=== PATIENT | male | born 1940 | race Caucasian/White ===

== ENCOUNTER 2017-02-13 22:14 | Inpatient (IN) | payer MEDICARE, BC ==
[2017-02-13] MEDS ORDERED: ACETAMINOPHEN TAB 500 MG TAB PO STA (22:49)
[2017-02-13 23:02] LABS: Basophils % (A) 0 %; CH 27.7; CHCM 33.2; Eosinophils % (A) 0 %; HDW 2.91; HGB 12.7 gm/dL (13.0-17.5); Luc # (Auto) 0.35; Luc % (Auto) 3; Lymphocytes # (A) 0.7 k/uL (1.0-4.8); Lymphocytes % (A) 7 %; MCH 27.2 pg (25.0-35.0); MCHC 32.6 g/dL (31.0-37.0); MCV 83.6 fL (80.0-100.0); Mean Platelet Volume 8.7; Monocytes # (A) 0.5 k/uL (0-1.0); Monocytes % (A) 5 %; Neutrophils # (A) 8.9 k/uL (1.3-7.7); Neutrophils % (A) 85 %; RBC 4.67 m/uL (4.30-5.90); RDW 15.2 % (11.5-15.5); WBC 10.5 k/uL (3.8-10.6); WBC (Perox) 10.66
[2017-02-13] MEDS: SODIUM CHLORIDE 0.9% 500 ML IV SCH ×2 (23:04→23:45)
[2017-02-13 23:10] LABS: Appearance,Urine Clear (Clear); Bacteria,Urine Rare /hpf; Bilirubin,Urine Negative (Negative); Glucose,Urine (UA) Trace (Negative); Ketones,Urine 1+ (Negative); Leukocyte Esterase,Urine Negative (Negative); Mucus,Urine Rare /hpf; Nitrite,Urine Negative (Negative); PH, Urine 5.5 (5.0-8.0); Particle Count 6025; Protein,Urine 3+ (Negative); RBC,Urine 1 /hpf (0-5); Squamous Epithelial Cell,Urine <1 /hpf (0-4); UA Billing (MACRO vs. MICRO) MICRO; Urobilinogen,Urine <2.0 mg/dL (<2.0); WBC,Urine 1 /hpf (0-5)
[2017-02-13] MEDS ORDERED: ACETAMINOPHEN IV (For NPO) 1,000 MG in EMPTY BAG 1 BAG IVPB ONE (23:10)
[2017-02-13 23:11] LABS: ALT 19 U/L (21-72); AST 20 U/L (17-59); Alkaline Phosphatase 104 U/L (38-126); Anion Gap 19 mmol/L; Blood Urea Nitrogen 22 mg/dL (9-20); Carbon Dioxide 18 mmol/L (22-30); Chloride 99 mmol/L (98-107); Glucose 283 mg/dL (74-99); Non-African American GFR(MDRD) >60 (>60 ml/min/1.73 sqM); Potassium 4.5 mmol/L (3.5-5.1); Sodium 136 mmol/L (137-145); Total Protein 8.2 g/dL (6.3-8.2)
[2017-02-13 23:13] LABS: INR 1.1 (<1.1); Partial Thromboplastin Time 24.6 sec (22.0-30.0); Prothrombin Time 10.7 sec (9.0-12.0)
--- NOTE | 2017-02-13 23:24 | ED ---
General Adult HPI - General Chief complaint: Nausea/Vomiting/Diarrhea Stated complaint: fever Time Seen by Provider: 02/13/17 22:22 Source: patient, family Mode of arrival: wheelchair Limitations: no limitations - History of Present Illness Initial comments: This is a 77-year-old male with a history of CVA, CAD with a pacemaker and defibrillator presents emergency department for nausea, vomiting, diarrhea, and generalized weakness. The patient developed the nausea and vomiting and diarrhea yesterday and progressed into today. Denies any blood or dark stools. He did feel slightly feverish at home. He denies any chest pain or shortness of breath. He does feel little bit lightheaded like he is going to pass out however has not had any syncopal episodes. He denies any lower extremity pain or swelling. He denies any focal weakness. No other complaints. - Related Data Home Medications Medication Instructions Recorded Confirmed Aspirin/Dipyridamole [Aggrenox 1 tab PO BID 08/11/15 02/13/17 25MG -200MG] Enalapril [Vasotec] 10 mg PO BID 08/11/15 02/13/17 Metoprolol Tartrate [Lopressor] 75 mg PO BID 08/11/15 02/13/17 metFORMIN HCL [Glucophage] 500 mg PO BID 08/11/15 02/13/17 Allergies Allergy/AdvReac Type Severity Reaction Status Date / Time clopidogrel bisulfate Allergy Unknown Verified 02/13/17 22:44 [From Plavix] Review of Systems ROS Statement: Those systems with pertinent positive or pertinent negative responses have been documented in the HPI. ROS Other: All systems not noted in ROS Statement are negative. Past Medical History Past Medical History: Coronary Artery Disease (CAD), CVA/TIA, Diabetes Mellitus , Hyperlipidemia, Myocardial Infarction (NM) Additional Past Medical History / Comment(s): hx TIA's, problems with balance- has cane, prone to get respiratory infections, arthritis, hx kidney stones Last Myocardial Infarction Date:: 1995 History of Any Multi-Drug Resistant Organisms: None Reported Past Surgical History: AICD, Cardiac Valve Replacement, Coronary Bypass/CABG, Heart Catheterization, Hernia Repair Additional Past Surgical History / Comment(s): removal of kidney stones Past Anesthesia/Blood Transfusion Reactions: Previous Problems w/ Anesthesia Additional Past Anesthesia/Blood Transfusion Reaction / Comment(s): with pacemaker procedure-felt eveything. Type of Cardiac Device: AICD Device Placement Date:: 9-10 yrs ago Past Psychological History: No Psychological Hx Reported Smoking Status: Never smoker Past Alcohol Use History: None Reported Past Drug Use History: None Reported - Past Family History Mother Family Medical History: Cancer Sister(s) Family Medical History: Cancer Additional Family Medical History / Comment(s): from [place] General Exam - General Exam Comments Initial Comments: Constitutional: Awake alert Appears comfortable Head: Normocephalic atraumatic Eyes: no conjunctival injection No scleral icterus EOMI mild conjunctival pallor , pupils are 4 mm reactive bilaterally Neck: No JVD Supple Heart: Tachycardia normal S1-S2 no murmurs Lungs: Clear to auscultation bilaterally No wheezing No rales Abdomen: Soft nondistended nontender Extremities: Non edematous DP pulses intact Radial pulses intact Neuro: A&Ox3 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 Cranial nerves II through XII are grossly intact Psych: Appropriate mood and affect Limitations: no limitations Course Vital Signs 02/13/17 02/13/17 02/14/17 22:40 22:55 00:03 Temperature 101.0 F H 100.8 F H Pulse Rate 122 H 107 H Respiratory 18 22 18 Rate Blood Pressure 154/71 137/80 O2 Sat by Pulse 97 96 Oximetry - Reevaluation(s) Reevaluation #1: 02/14/17 00:38 Repeat EKG obtained which shows what appears to be atrial fibrillation with occasional paced beats. On review of the ST segments there is mild elevation in 3 and aVF however this is unchanged from previous EKG there are no acute changes. QTC is 467 other intervals are normal. No ectopy. EKG Findings - EKG Comments: EKG Findings:: EKG is showing what appears to be atrial fibrillation with a rate of 103. There is very frequent PVCs. QTC is 403. There is no acute STEMI. ST elevations are from the PVCs. Intrinsic rhythm does not show any ST segment changes. Medical Decision Making - Medical Decision Making This is a 77-year-old male who presents emergency department for nausea, vomiting, diarrhea, and weakness. The patient was found to be febrile and tachycardic on arrival. There is no leukocytosis. Chest x-ray and urinalysis were unremarkable. CT of the abdomen was performed did not show any convincing intra-abdominal source however due to the patient's symptoms he was started on Levaquin and Flagyl. He is given 2 L of fluids and started on maintenance at 75 an hour. Patient will be admitted for sepsis from suspecting intra- abdominal source. Patient was also found to be in what appears to be new onset A. fib. He started on heparin for this. He is on Aggrenox however may require further anticoagulation. We'll leave this to the hospitalist. Patient is okay for transfer to floor. - Lab Data Result diagrams: 02/13/17 22:25 02/13/17 22:25 Lab Results 02/13/17 02/13/17 02/13/17 Range/Units 22:25 22:25 22:25 WBC 10.5 (3.8-10.6) k/uL RBC 4.67 (4.30-5.90) m/uL Hgb 12.7 L (13.0-17.5) gm/dL Hct 39.0 (39.0-53.0) % MCV 83.6 (80.0-100.0) fL MCH 27.2 (25.0-35.0) pg MCHC 32.6 (31.0-37.0) g/dL RDW 15.2 (11.5-15.5) % Plt Count 178 (150-450) k/uL Neutrophils % 85 % Lymphocytes % 7 % Monocytes % 5 % Eosinophils % 0 % Basophils % 0 % Neutrophils # 8.9 H (1.3-7.7) k/uL Lymphocytes # 0.7 L (1.0-4.8) k/uL Monocytes # 0.5 (0-1.0) k/uL Eosinophils # 0.0 (0-0.7) k/uL Basophils # 0.0 (0-0.2) k/uL PT (9.0-12.0) sec INR (<1.1) APTT (22.0-30.0) sec Sodium 136 L (137-145) mmol/L Potassium 4.5 (3.5-5.1) mmol/L Chloride 99 (98-107) mmol/L Carbon Dioxide 18 L (22-30) mmol/L Anion Gap 19 mmol/L BUN 22 H (9-20) mg/dL Creatinine 1.17 (0.66-1.25) mg/dL Est GFR (MDRD) Af Amer >60 (>60 ml/min/1.73 sqM) Est GFR (MDRD) Non-Af >60 (>60 ml/min/1.73 sqM) Glucose 283 H (74-99) mg/dL Plasma Lactic Acid Gianni (0.7-2.0) mmol/L Calcium 10.0 (8.4-10.2) mg/dL Total Bilirubin 1.0 (0.2-1.3) mg/dL AST 20 (17-59) U/L ALT 19 L (21-72) U/L Alkaline Phosphatase 104 (38-126) U/L NT-Pro-B Natriuret Pep 2800 pg/mL Total Protein 8.2 (6.3-8.2) g/dL Albumin 4.7 (3.5-5.0) g/dL Urine Color Urine Appearance (Clear) Urine pH (5.0-8.0) Ur Specific Altura (1.001-1.035) Urine Protein (Negative) Urine Glucose (UA) (Negative) Urine Ketones (Negative) Urine Blood (Negative) Urine Nitrite (Negative) Urine Bilirubin (Negative) Urine Urobilinogen (<2.0) mg/dL Ur Leukocyte Esterase (Negative) Urine RBC (0-5) /hpf Urine WBC (0-5) /hpf Ur Squamous Epith Cells (0-4) /hpf Urine Bacteria (None) /hpf Hyaline Casts (0-2) /lpf Urine Mucus (None) /hpf 02/13/17 02/13/17 02/13/17 Range/Units 22:25 22:25 22:51 WBC (3.8-10.6) k/uL RBC (4.30-5.90) m/uL Hgb (13.0-17.5) gm/dL Hct (39.0-53.0) % MCV (80.0-100.0) fL MCH (25.0-35.0) pg MCHC (31.0-37.0) g/dL RDW (11.5-15.5) % Plt Count (150-450) k/uL Neutrophils % % Lymphocytes % % Monocytes % % Eosinophils % % Basophils % % Neutrophils # (1.3-7.7) k/uL Lymphocytes # (1.0-4.8) k/uL Monocytes # (0-1.0) k/uL Eosinophils # (0-0.7) k/uL Basophils # (0-0.2) k/uL PT 10.7 (9.0-12.0) sec INR 1.1 (<1.1) APTT 24.6 (22.0-30.0) sec Sodium (137-145) mmol/L Potassium (3.5-5.1) mmol/L Chloride (98-107) mmol/L Carbon Dioxide (22-30) mmol/L Anion Gap mmol/L BUN (9-20) mg/dL Creatinine (0.66-1.25) mg/dL Est GFR (MDRD) Af Amer (>60 ml/min/1.73 sqM) Est GFR (MDRD) Non-Af (>60 ml/min/1.73 sqM) Glucose (74-99) mg/dL Plasma Lactic Acid Gianni 3.8 H* (0.7-2.0) mmol/L Calcium (8.4-10.2) mg/dL Total Bilirubin (0.2-1.3) mg/dL AST (17-59) U/L ALT (21-72) U/L Alkaline Phosphatase (38-126) U/L NT-Pro-B Natriuret Pep pg/mL Total Protein (6.3-8.2) g/dL Albumin (3.5-5.0) g/dL Urine Color Yellow Urine Appearance Clear (Clear) Urine pH 5.5 (5.0-8.0) Ur Specific Altura 1.020 (1.001-1.035) Urine Protein 3+ H (Negative) Urine Glucose (UA) Trace H (Negative) Urine Ketones 1+ H (Negative) Urine Blood Small H (Negative) Urine Nitrite Negative (Negative) Urine Bilirubin Negative (Negative) Urine Urobilinogen <2.0 (<2.0) mg/dL Ur Leukocyte Esterase Negative (Negative) Urine RBC 1 (0-5) /hpf Urine WBC 1 (0-5) /hpf Ur Squamous Epith Cells <1 (0-4) /hpf Urine Bacteria Rare H (None) /hpf Hyaline Casts 1 (0-2) /lpf Urine Mucus Rare H (None) /hpf Disposition Clinical Impression: Sepsis, Dehydration, Nausea vomiting and diarrhea, New onset a-fib Disposition: ADMITTED IP TO THIS HOSP Condition: Stable
[2017-02-13] MEDS ORDERED: RX INFO: IV CONTRAST WAS GIVEN 1 EACH MISC MISCELLANE PRN (23:52)
--- NOTE | 2017-02-14 00:02 | XR ---
EXAM: XR Chest, 1 View CLINICAL HISTORY: Reason: Fever and weakness TECHNIQUE: Frontal view of the chest. COMPARISON: Chest radiograph on 11/20/2015 FINDINGS: Lungs/pleura: Lower lung volumes with mild bibasilar atelectasis. No focal consolidation. Stable pulmonary nodule in the right midlung zone. No pleural effusion or pneumothorax. Stable mild elevation of the right hemidiaphragm. Heart/mediastinum: Left-sided pacemaker/AICD in place stable mild enlargement of the cardiac silhouette. Median sternotomy changes and noted. Atherosclerotic calcifications of the aorta. Soft tissues: Unremarkable. Bones: No acute fracture. Degenerative changes of the spine. IMPRESSION: Low lung volumes with mild bibasilar atelectasis. No acute abnormality.
[2017-02-14] MEDS: SODIUM CHLORIDE 0.9% 500 ML IV SCH ×2 (00:24→00:25)
[2017-02-14] MEDS ORDERED: LEVOFLOXACIN 500MG-D5W PMX 500 MG in DEXTROSE/WATER 1 100ML.BAG IVPB STA (00:47)
[2017-02-14] MEDS ORDERED: metroNIDAZOLE-NS PMX 500 MG in SALINE 1 100ML.BAG IVPB STA (00:47)
[2017-02-14] MEDS ORDERED: HEPARIN SODIUM,PORCINE 5,000 UNIT/ML 1 ML VIAL IV ONE (00:49)
[2017-02-14] MEDS ORDERED: ONDANSETRON 4 MG/2 ML VIAL IVP PRN (01:13)
[2017-02-14] MEDS ORDERED: NALOXONE 0.4 MG/ML 1 ML VIAL IV PRN (01:13)
--- NOTE | 2017-02-14 01:49 | CT ---
EXAM: CT Abdomen and Pelvis With Intravenous Contrast CLINICAL HISTORY: Reason: Abdominal Pain with Diarrhea TECHNIQUE: Axial computed tomography images of the abdomen and pelvis with intravenous contrast. CTDI is 20.20 mGy and DLP is 919.80 mGy-cm. This CT exam was performed using one or more of the following dose reduction techniques: automated exposure control, adjustment of the mA and/or kV according to patient size, and/or use of iterative reconstruction technique. COMPARISON: None FINDINGS: Liver: Probable fatty infiltration of the liver. No focal lesion. Spleen: Normal. No focal lesion. Gallbladder: Mildly distended gallbladder without evidence of inflammation. No stones or biliary dilatation. Pancreas: Normal. No mass. Adrenal glands: Normal. No mass. Kidneys: Tiny hypodensity in the right kidney is too small to definitively characterize but may represent a cyst. Parenchymal scarring in left greater than right kidneys. No hydronephrosis or stone. Bowel: Normal appendix. No bowel obstruction. Prominence of the ivan of the colon and rectum are likely at least in part accentuated by underdistention, but element of colitis cannot be excluded. Urinary bladder: Normal. No wall thickening or mass. Reproductive organs: Calcifications of the prostate. Muscles: No mass. Subcutaneous tissues: Small right fat-containing hernia. Peritoneal space: Normal. No free fluid. Lymph nodes: Small mesenteric lymph nodes are nonspecific but may be reactive. Vessels: Extensive atherosclerotic changes of the vasculature. No aneurysm or dissection. Bones: Degenerative changes of the spine. No acute fracture or bony lesion. Lung bases: Calcified granulomas in the right middle lobe and right lower lobe. Bibasilar and dependent atelectasis. Pacer/AICD wires partially visualized in the heart. Mild cardiomegaly. Coronary artery calcifications. IMPRESSION: 1. Diffuse prominence of the ivan of the colon and rectum are at least in part accentuated by underdistention, but element of colitis cannot be excluded. No bowel obstruction. Normal appendix. 2. Probable fatty infiltration of the liver.
[2017-02-14] MEDS: SODIUM CHLORIDE 0.9% 1,000 ML IV SCH ×2 (01:56→19:51)
[2017-02-14] MEDS: HEPARIN SODIUM,PORCINE/D5W PMX 25,000 UNIT in DEXTROSE/WATER 1 500ML.BAG IV SCH (01:59)
[2017-02-14 06:33] LABS: Creatine Kinase MB 0.9 ng/mL (0.0-2.4)
[2017-02-14 06:38] LABS: Troponin I 0.083 ng/mL (0.000-0.034)
[2017-02-14] MEDS: METOPROLOL TARTRATE 25 MG TAB PO SCH ×2 (08:40→19:46)
[2017-02-14] MEDS: DIPYRIDAMOLE-ASPIRIN 200-25 MG 1 EACH CPMP.12HR PO SCH ×2 (08:40→19:46)
[2017-02-14] MEDS: LISINOPRIL 20 MG TAB PO SCH (08:40)
[2017-02-14] MEDS ORDERED: metFORMIN 500 MG TAB PO SCH (09:00)
--- NOTE | 2017-02-14 09:40 | CONS ---
DATE OF CONSULTATION: Bhargav is a 77-year-old gentleman with history of coronary artery disease, status post CABG, history of mitral valve regurgitation, status post mitral valve replacement, ischemic cardiomyopathy, status post AICD, hypertension, and dyslipidemia who presented to hospital having had episodes of diarrhea and developing significant fatigue and tiredness. He was just not able to walk. He came in thinking that he may have had another CVA. The patient had prior cerebrovascular accident, with loss of vision, in the left eye. This happened in November 2015. He is admitted to the hospital with new onset atrial fibrillation as he was found to be in atrial fibrillation. He also had fever and was found to have had sepsis. Since admission he has had troponins that came back elevated at 0.083. BNP is elevated at 2800. Lactic acid was up. Creatinine is normal. Hemoglobin is 12.7. At the time of my evaluation, patient appears comfortable at rest and is free of significant symptoms. Past medical history is significant for Mitral valve replacement, prior CVA, ischemic cardiomyopathy, status post AICD, diabetes, dyslipidemia, hypertension. FAMILY HISTORY: Negative for premature coronary artery disease. SOCIAL HISTORY: Negative for smoking, ETOH abuse, or drug abuse. REVIEW OF SYSTEMS: HEENT: Significant for loss of vision, in the left eye. CARDIAC: As described above. RESPIRATORY: Negative. GI: Negative. GENITOURINARY: Negative. Allergy/immunology: Negative. SKIN: Negative. MUSCULOSKELETAL: Significant for arthritis. PSYCHOSOCIAL: Negative. ENDOCRINE: Negative. Dermatologic: Negative. Oncological: Negative. PSYCHOSOCIAL: Negative. Derm: Negative. CONSTITUTIONAL: Significant for mild elevation in temperature with a T-max of 101. ALLERGY/IMMUNOLOGY: Negative. The rest of the system review is not relevant. On exam T-max is 101, heart rate is 90 beats per minute, blood pressure 112/56, respiratory rate is 18. Chest exam reveals good air entry bilaterally. Heart exam reveals first and second heart sounds, irregular rhythm and a systolic murmur at the left lower sternal border. Abdomen soft. Exam of extremities did not reveal any edema. Peripheral pulses are palpable. Labs show a hemoglobin of 12.7, platelet count is 178. Creatinine is one, potassium is 4.5. Troponin is elevated. BNP is elevated. EKG shows atrial fibrillation with nonspecific ST-T wave changes. ASSESSMENT: 1. New onset atrial fibrillation with controlled ventricular rate. 2. Febrile illness of unclear etiology. 3. Mild troponin elevation of unclear clinical significance. 4. History of mitral valve replacement. 5. Coronary artery disease, status post coronary artery bypass grafting. 6. Chronic systolic heart failure. PLAN: I am going to start the patient on Coumadin and once therapeutic, we can stop the IV heparin. He is already on a beta martha, which I am going to continue and Lisinopril, which will be continued. I will get another set of troponin to see where we are going with it. I will obtain a 2-D echo to document his LV function. Patient had a stress test done in April 2015 that shows an ejection fraction of 25% and he had an echo done in 2014 that showed a normally functioning prosthetic valve. I am going to obtain another echo and I will run some blood cultures too given the fevers.
[2017-02-14 12:22] LABS: Creatine Kinase MB 1.1 ng/mL (0.0-2.4)
[2017-02-14 12:25] LABS: Troponin I 0.121 ng/mL (0.000-0.034)
[2017-02-14] MEDS ORDERED: VANCOMYCIN 1,500 MG in SODIUM CHLORIDE 0.9% 250 ML IVPB ONE (14:51)
[2017-02-14] MEDS: ACETAMINOPHEN TAB 325 MG TAB PO PRN (15:30)
[2017-02-14] MEDS: HEPARIN SODIUM,PORCINE 5,000 UNIT/ML 1 ML VIAL IV PRN (17:03)
[2017-02-14] MEDS: metroNIDAZOLE-NS PMX 500 MG in SALINE 1 100ML.BAG IVPB SCH ×2 (17:18→23:34)
[2017-02-14 18:26] LABS: Creatine Kinase MB 0.9 ng/mL (0.0-2.4)
[2017-02-14 18:33] LABS: Troponin I 0.121 ng/mL (0.000-0.034)
[2017-02-14 22:43] LABS: Basophils % (A) 0 %; CH 27.2; CHCM 30.9; Eosinophils % (A) 0 %; HCT 34.8 % (39.0-53.0); HDW 2.73; HGB 10.9 gm/dL (13.0-17.5); Hypochromasia Moderate; Luc # (Auto) 0.29; Luc % (Auto) 4; Lymphocytes # (A) 0.7 k/uL (1.0-4.8); Lymphocytes % (A) 10 %; MCH 27.6 pg (25.0-35.0); MCHC 31.2 g/dL (31.0-37.0); MCV 88.3 fL (80.0-100.0); Mean Platelet Volume 8.7; Monocytes # (A) 0.5 k/uL (0-1.0); Monocytes % (A) 7 %; Neutrophils # (A) 5.7 k/uL (1.3-7.7); Neutrophils % (A) 79 %; RBC 3.94 m/uL (4.30-5.90); WBC 7.2 k/uL (3.8-10.6); WBC (Perox) 6.73
[2017-02-15 01:55] LABS: ALT 23 U/L (21-72); AST 22 U/L (17-59); Alkaline Phosphatase 84 U/L (38-126); Anion Gap 12 mmol/L; Blood Urea Nitrogen 15 mg/dL (9-20); Calcium 8.7 mg/dL (8.4-10.2); Carbon Dioxide 16 mmol/L (22-30); Chloride 107 mmol/L (98-107); Glucose 236 mg/dL (74-99); Non-African American GFR(MDRD) >60 (>60 ml/min/1.73 sqM); Potassium 4.1 mmol/L (3.5-5.1); Sodium 135 mmol/L (137-145); Total Bilirubin 0.4 mg/dL (0.2-1.3); Total Protein 6.3 g/dL (6.3-8.2)
[2017-02-15] MEDS: ACETAMINOPHEN TAB 325 MG TAB PO PRN (02:11)
[2017-02-15] MEDS: HEPARIN SODIUM,PORCINE/D5W PMX 25,000 UNIT in DEXTROSE/WATER 1 500ML.BAG IV SCH (04:00)
[2017-02-15 05:45] LABS: Basophils % (A) 0 %; CH 27.4; CHCM 33.4; Eosinophils % (A) 0 %; HCT 30.9 % (39.0-53.0); HDW 3.09; HGB 10.2 gm/dL (13.0-17.5); Luc # (Auto) 0.23; Luc % (Auto) 3; Lymphocytes # (A) 0.8 k/uL (1.0-4.8); Lymphocytes % (A) 11 %; MCH 27.2 pg (25.0-35.0); Mean Platelet Volume 8.6; Monocytes # (A) 0.5 k/uL (0-1.0); Monocytes % (A) 6 %; Neutrophils # (A) 5.6 k/uL (1.3-7.7); Neutrophils % (A) 79 %; RBC 3.74 m/uL (4.30-5.90); RDW 15.1 % (11.5-15.5); WBC 7.1 k/uL (3.8-10.6); WBC (Perox) 7.58
[2017-02-15 05:50] LABS: MCV 82.5 fL (80.0-100.0)
[2017-02-15] MEDS: SODIUM CHLORIDE 0.9% 1,000 ML IV SCH ×2 (05:56→19:58)
[2017-02-15] MEDS: HEPARIN SODIUM,PORCINE 5,000 UNIT/ML 1 ML VIAL IV PRN (06:46)
--- NOTE | 2017-02-15 07:12 | XR ---
EXAMINATION TYPE: XR chest 1V portable DATE OF EXAM: 02/15/2017 HISTORY: GREG. REFERENCE: Previous study dated 02/13/2017. FINDINGS: There has been a midline sternotomy. A bipolar pacemaker is in place on the left. Heart size is upper limits of normal. There is groundglass opacity in both lungs. Right-sided pulmona ry nodules are largely obscured. There is peribronchial cuffing. Pleural spaces appear clear. IMPRESSION: 1. CARDIOMEGALY. 2. WORSENING AIRSPACE OPACITY BILATERALLY MAY REFLECT PULMONARY EDEMA OR PNEUMONITIS. CORRELATE CLINI MARI.
[2017-02-15 07:42] LABS: ALT 21 U/L (21-72); AST 24 U/L (17-59); Alkaline Phosphatase 78 U/L (38-126); Anion Gap 13 mmol/L; Blood Urea Nitrogen 16 mg/dL (9-20); Calcium 8.9 mg/dL (8.4-10.2); Carbon Dioxide 20 mmol/L (22-30); Chloride 104 mmol/L (98-107); Glucose 234 mg/dL (74-99); Non-African American GFR(MDRD) 55 (>60 ml/min/1.73 sqM); Potassium 3.8 mmol/L (3.5-5.1); Sodium 137 mmol/L (137-145); Total Bilirubin 0.8 mg/dL (0.2-1.3); Total Protein 7.7 g/dL (6.3-8.2)
[2017-02-15] MEDS: metroNIDAZOLE-NS PMX 500 MG in SALINE 1 100ML.BAG IVPB SCH ×3 (08:31→23:12)
[2017-02-15] MEDS: LISINOPRIL 20 MG TAB PO SCH (08:31)
[2017-02-15] MEDS: METOPROLOL TARTRATE 25 MG TAB PO SCH ×2 (08:32→20:08)
[2017-02-15] MEDS: DIPYRIDAMOLE-ASPIRIN 200-25 MG 1 EACH CPMP.12HR PO SCH ×2 (08:32→20:07)
--- NOTE | 2017-02-15 08:59 | HP ---
DATE OF ADMISSION: Reason for admission is fever. HISTORY OF PRESENT ILLNESS: This a 77-year-old gentleman with history of CVA with left-sided weakness, CAD with pacemaker and defibrillator. Comes in the hospital with intractable nausea, vomiting for the last 2 to 3 days. Patient has been more weak and drowsy over the last few days. States that he has had few episodes of watery loose bowel movements over the same period of time. Patient was not able to tolerate oral intake and has been vomiting over the same period of time. The patient denies having any focal abdominal pain. States his pain is predominantly in the epigastric region at this time. Patient was noted to have an indeterminate troponin leak. Patient's EKG in the emergency room was consistent with new onset atrial fibrillation with increased ventricular rate. However, patient was also noted to have a T-max of 101.5 in the hospital as well. A UA did not reveal any significant abnormalities concerning for UTI. Patient is also asymptomatic. Patient does not have any difficulty in breathing, cough. A chest x-ray shows bibasilar atelectasis; however, no infiltrate is not. This is reviewed by myself. REVIEW OF SYSTEMS: A 14-point review of system was done and pertinent abnormality as mentioned above. Home medications include: 1. Aggrenox. 2. Vasotec. 3. Lopressor. 4. Glucophage. ALLERGIES: CLOPIDOGREL. 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 SOCIAL HISTORY: Lifelong nonsmoker. No alcohol or illicit drug use. Currently lives at home, is able to only walk short distances with the significant assistance. This has been ongoing since his last stroke. FAMILY HISTORY: Not pertinent to the current admission. PHYSICAL EXAM: VITAL SIGNS: Temperature T-max 101.5, heart rate IS around 122, respiratory rate 18, blood pressure is 154/71, saturating 97% on room air. HEENT: Left eye blindness on gross examination. GENERALLY: Patient appears to be alert, oriented x3. HEART: S1, S2 present. No murmur appreciated. LUNGS: Good air entry. No wheezing or rhonchi noted. GENITOURINARY: No Patricia in place. EXTREMITIES: Pulses can be palpated distally. Denies any tenderness on gross palpation. SKIN: On a gross skin exam does not appear to have any purpura or any skin rashes that were noted. NEURO: Strength is 5/5 in all 4 extremities. No focal deficits were appreciated. ABDOMEN: Some tenderness noted in the right upper quadrant. Pickett's is negative. No other focal tenderness noted on the right or left lower quadrant at this time. LABORATORY DATA: Today includes hemoglobin 12.7, hematocrit 39, white count 10.5, platelets of 178. Sodium 136, potassium 4.5, chloride 99, bicarb 18, BUN 22, creatinine 1.17. ASSESSMENT AND PLAN: 1. Sepsis secondary to an unknown etiology. Some concerns for gram-positive bacteremia. 2. Radiologic diagnosis of colitis; however, no significant clinical correlation. 3. New onset atrial fibrillation with rapid ventricular rate. 4. Cerebrovascular accident. 5. Coronary artery disease. 6. Hypertension. 7. Lactic acidosis secondary to above. 8. Nonanion gap metabolic acidosis secondary to above. 9. Indeterminate troponin leak likely due to sepsis. PLAN: Continue with heparin. Will ( ) the patient with Rocephin, Flagyl, and vancomycin. Cardiology to evaluate the patient. Echocardiogram will be obtained. Patient is noted to have a granuloma in the chest. No identifying source of sepsis. No clinical correlation except for nausea, vomiting. Will continue with empiric antibiotic therapy. Repeat labs in a.m. including liver function. May need to consider obtaining imaging study of the chest tomorrow or will start with a chest x-ray. Patient is fluid-resuscitated at this time. Will follow.
--- NOTE | 2017-02-15 10:13 | ECHOF ---
Referral Reason:abn trop MEASUREMENTS -------- HEIGHT: 167.6 cm WEIGHT: 78.5 kg BP: 117/65 RVIDd: 4.5 cm (< 3.3) IVSd: 1.3 cm (0.6 - 1.1) LVIDd: 4.5 cm (3.9 - 5.3) LVPWd: 1.2 cm (0.6 - 1.1) IVSs: 1.8 cm LVIDs: 3.5 cm LVPWs: 1.4 cm LAESV Index (A-L): 33.43 ml/m Ao Diam: 2.8 cm (2.0 - 3.7) AV Cusp: 1.4 cm (1.5 - 2.6) LA Diam: 4.2 cm (2.7 - 3.8) MV E Kenton: 2.59 m/s MV DecT: 507 ms MV A Kenton: 2.07 m/s MV E/A Ratio: 1.25 AV maxP.80 mmHg AV meanP.73 mmHg RAP: 5.00 mmHg RVSP: 34.50 mmHg FINDINGS -------- Paced rhythm. This was a technically good study. There is mild concentric left ventricular hypertrophy. Overall left ventricular systolic function is mildly impaired with, an EF between 45 - 50 %. The right ventricle is normal in size and function. LA is midly dilated 29-33ml/m2. The right atrium is normal in size. Electronic pacemaker lead seen in the right atrial cavity. Aortic valve is trileaflet and is mildly thickened. There is no evidence of aortic regurgitation. There is no evidence of aortic stenosis. There is trace to mild mitral regurgitation. 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 Trace tricuspid regurgitation present. There is no evidence of pulmonary hypertension. The right ventricular systolic pressure, as measured by Doppler, is 34.50mmHg. The pulmonic valve was not well visualized. The aortic root size is normal. Normal inferior vena cava with normal inspiratory collapse consistent with estimated right atrial pressure of 5 mmHg. The pericardium is normal. There is no pericardial effusion. CONCLUSIONS -------- 1. Paced rhythm. 2. There is no evidence of aortic stenosis. 3. There is trace to mild mitral regurgitation. 4. 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 5. Trace tricuspid regurgitation present. 6. There is no evidence of pulmonary hypertension. 7. The right ventricular systolic pressure, as measured by Doppler, is 34.50mmHg. 8. The pulmonic valve was not well visualized. 9. The aortic root size is normal. 10. There is no pericardial effusion. 11. This was a technically good study. 12. There is mild concentric left ventricular hypertrophy. 13. Overall left ventricular systolic function is mildly impaired with, an EF between 45 - 50 %. 14. LA is midly dilated 29-33ml/m2. 15. The right atrium is normal in size. 16. Electronic pacemaker lead seen in the right atrial cavity. 17. Aortic valve is trileaflet and is mildly thickened. 18. There is no evidence of aortic regurgitation. FIELD TECHNICIAN: Ferny Friedman RDCS
--- NOTE | 2017-02-15 10:33 | P.PN ---
Subjective Principal diagnosis: Sepsis This is a 77-year-old gentleman with known history of coronary artery disease and prior bypass surgery, status post mitral valve replacement, ischemic cardiomyopathy with prior AICD implantation, hypertension, hyperlipidemia, who presented to the hospital following several episodes of diarrhea stools with associated fatigue and tiredness. Patient was also found to be febrile on admission here. He did have blood cultures performed which revealed gram- positive cocci in clusters. Because of the positive blood cultures and history of valve replacement patient was advised to undergo transesophageal echocardiographic study. This will be performed tomorrow by Dr. Garcia. The risks and the benefits were explained to the patient in detail. Temperature this morning 99.0, blood pressure 130/60. Objective - Vital Signs Vital signs: Vital Signs Temp 99.0 F 02/15/17 08:36 Pulse 85 02/15/17 08:36 Resp 22 02/15/17 08:36 BP 130/61 02/15/17 08:36 Pulse Ox 96 02/15/17 08:36 Intake & Output 02/14/17 02/15/17 02/15/17 18:59 06:59 18:59 Intake Total 7917.765 7320.624 120 Output Total 600 700 400 Balance 1234.144 564.624 -280 Weight 78 kg Intake: IV 264 996 Heparin Sodium,Porcine/ 264 396 D5w Pmx 25,000 unit In Dextrose/Water 1 500ml. bag @ 12 UNITS/KG/HR 18. 94 mls/hr IV .Q24H [facility] Rx #:[id number] Sodium Chloride 0.9% 1, 600 000 ml @ 75 mls/hr IV . [id number] [facility] Rx#:[id number] Intake, IV Titration 1450.144 268.624 Amount Heparin Sodium,Porcine/ 310.144 268.624 D5w Pmx 25,000 unit In Dextrose/Water 1 500ml. bag @ 12 UNITS/KG/HR 18. 94 mls/hr IV .Q24H [facility] Rx #:[id number] Sodium Chloride 0.9% 1, 1140 000 ml @ 75 mls/hr IV . [id number] [facility] Rx#:[id number] Oral 120 120 Output: Urine 600 300 200 Stool 400 200 Other: Voiding Method Urinal Urinal # Voids 1 # Bowel Movements 2 1 1 - Exam PHYSICAL EXAMINATION: HEENT: Head is atraumatic, normocephalic. Pupils equal, round. Neck is supple. There is no elevated jugular venous pressure. HEART EXAMINATION: Heart S1 and S2 systolic murmur is heard. CHEST EXAMINATION: Lungs are clear to auscultation and precussion. No chest wall tenderness is noted on palpation or with deep breathing. ABDOMEN: Soft, nontender. Bowel sounds are heard. No organomegaly noted. EXTREMITIES: 2+ peripheral pulses with no evidence of peripheral edema and no calf tenderness noted]. NEUROLOGIC [patient is awake, alert and oriented -3.] . - Labs CBC & Chem 7: 02/15/17 05:20 02/15/17 07:08 Labs: Abnormal Lab Results - Last 24 Hours (Table) 02/14/17 02/14/17 02/14/17 Range/Units 11:19 15:41 17:22 RBC (4.30-5.90) m/uL Hgb (13.0-17.5) gm/dL Hct (39.0-53.0) % Plt Count (150-450) k/uL Lymphocytes # (1.0-4.8) k/uL APTT 31.9 H (22.0-30.0) sec Sodium (137-145) mmol/L Carbon Dioxide (22-30) mmol/L Creatinine (0.66-1.25) mg/dL Glucose (74-99) mg/dL Total Creatine Kinase 43 L 45 L (55-170) U/L Troponin I 0.121 H* 0.121 H* (0.000-0.034) ng/mL 02/14/17 02/14/17 02/14/17 Range/Units 22:23 22:23 22:23 RBC 3.94 L (4.30-5.90) m/uL Hgb 10.9 L (13.0-17.5) gm/dL Hct 34.8 L (39.0-53.0) % Plt Count 149 L (150-450) k/uL Lymphocytes # 0.7 L (1.0-4.8) k/uL APTT 46.2 H (22.0-30.0) sec Sodium 135 L (137-145) mmol/L Carbon Dioxide 16 L (22-30) mmol/L Creatinine (0.66-1.25) mg/dL Glucose 236 H (74-99) mg/dL Total Creatine Kinase (55-170) U/L Troponin I (0.000-0.034) ng/mL 02/15/17 02/15/17 02/15/17 Range/Units 05:20 05:20 07:08 RBC 3.74 L (4.30-5.90) m/uL Hgb 10.2 L (13.0-17.5) gm/dL Hct 30.9 L (39.0-53.0) % Plt Count 115 L (150-450) k/uL Lymphocytes # 0.8 L (1.0-4.8) k/uL APTT 46.6 H (22.0-30.0) sec Sodium (137-145) mmol/L Carbon Dioxide 20 L (22-30) mmol/L Creatinine 1.27 H (0.66-1.25) mg/dL Glucose 234 H (74-99) mg/dL Total Creatine Kinase (55-170) U/L Troponin I (0.000-0.034) ng/mL Microbiology - Last 24 Hours (Table) 02/13/17 22:25 Blood Culture - Final Blood 02/13/17 22:25 Blood Culture Gram Stain - Preliminary Blood Blood Culture - Preliminary Staphylococcus species 02/13/17 22:57 Blood Culture Gram Stain - Preliminary Blood 02/13/17 22:51 Urine Culture - Preliminary Urine,Voided Assessment and Plan (1) Sepsis Status: Acute (2) Paroxysmal a-fib Status: Acute (3) Elevated troponin Status: Acute (4) S/P MVR (mitral valve replacement) Status: Acute (5) Hx of CABG Status: Acute (6) Ischemic cardiomyopathy Status: Acute (7) AICD (automatic cardioverter/defibrillator) present Status: Acute (8) CVA (cerebral vascular accident) Status: Acute (9) HTN (hypertension) Status: Acute (10) Hyperlipemia Status: Acute (11) Diabetes Status: Acute (12) Positive blood cultures Status: Acute Plan: From cardiology's perspective, because of the positive blood cultures and history of mitral valve replacement, patient has been advised to undergo transesophageal echocardiographic study. This will be performed tomorrow morning by Dr. Garcia. The risks and the benefits were explained to the patient in detail. Patient has also been initiated on Coumadin, once the INR is therapeutic we can discontinue the heparin. DNP note has been reviewed, I agree with a documented findings and plan of care. Patient was seen and examined.
[2017-02-15] MEDS: VANCOMYCIN 1,250 MG in SODIUM CHLORIDE 0.9% 250 ML IVPB SCH (11:34)
[2017-02-15] MEDS: IPRATROPIUM-ALBUTEROL 3 ML NEB INHALATION PRN ×2 (12:10→17:36)
[2017-02-15] MEDS: IPRATROPIUM-ALBUTEROL 3 ML NEB INHALATION SCH ×2 (15:05→19:45)
--- NOTE | 2017-02-15 17:14 | P.PN ---
Subjective DATE OF ADMISSION: Reason for admission is fever. HISTORY OF PRESENT ILLNESS: This a 77-year-old gentleman with history of CVA with left-sided weakness, CAD with pacemaker and defibrillator. Comes in the hospital with intractable nausea, vomiting for the last 2 to 3 days. Patient has been more weak and drowsy over the last few days. States that he has had few episodes of watery loose bowel movements over the same period of time. Patient was not able to tolerate oral intake and has been vomiting over the same period of time. The patient denies having any focal abdominal pain. States his pain is predominantly in the epigastric region at this time. Patient was noted to have an indeterminate troponin leak. Patient's EKG in the emergency room was consistent with new onset atrial fibrillation with increased ventricular rate. However, patient was also noted to have a T-max of 101.5 in the hospital as well. A UA did not reveal any significant abnormalities concerning for UTI. Patient is also asymptomatic. Patient does not have any difficulty in breathing, cough. A chest x-ray shows bibasilar atelectasis; however, no infiltrate is not. This is reviewed by myself. 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 GENERALLY: Patient appears to be alert, oriented x3. HEART: S1, S2 present. No murmur appreciated. LUNGS: Good air entry. No wheezing or rhonchi noted. GENITOURINARY: No Patricia in place. EXTREMITIES: Pulses can be palpated distally. Denies any tenderness on gross palpation. SKIN: On a gross skin exam does not appear to have any purpura or any skin rashes that were noted. NEURO: Strength is 5/5 on the right , some weakness noted on the left, which is chronic. ABDOMEN: Some tenderness noted in the right upper quadrant. Pickett's is negative. No other focal tenderness noted on the right or left lower quadrant at this time. Objective - Vital Signs Vital signs: Vital Signs Temp 97.7 F 02/15/17 12:14 Pulse 90 02/15/17 15:18 Resp 22 02/15/17 12:14 BP 140/78 02/15/17 12:14 Pulse Ox 95 02/15/17 12:14 Intake & Output 02/14/17 02/15/1717 18:59 06:59 18:59 Intake Total 7589.974 8462.624 240 Output Total 600 700 600 Balance 1234.144 564.624 -360 Weight 78 kg 78 kg Intake: IV 264 996 Heparin Sodium,Porcine/ 264 396 D5w Pmx 25,000 unit In Dextrose/Water 1 500ml. bag @ 12 UNITS/KG/HR 18. 94 mls/hr IV .Q24H [facility] Rx #:[id number] Sodium Chloride 0.9% 1, 600 000 ml @ 75 mls/hr IV . [id number] [facility] Rx#:[id number] Intake, IV Titration 1450.144 268.624 Amount Heparin Sodium,Porcine/ 310.144 268.624 D5w Pmx 25,000 unit In Dextrose/Water 1 500ml. bag @ 12 UNITS/KG/HR 18. 94 mls/hr IV .Q24H [facility] Rx #:[id number] Sodium Chloride 0.9% 1, 1140 000 ml @ 75 mls/hr IV . [id number] [facility] Rx#:[id number] Oral 120 240 Output: Urine 600 300 200 Stool 400 400 Other: Voiding Method Urinal Urinal # Voids 1 1 # Bowel Movements 2 1 1 - Labs CBC & Chem 7: 02/15/17 05:20 02/15/17 07:08 Labs: Abnormal Lab Results - Last 24 Hours (Table) 02/14/17 02/14/17 02/14/17 Range/Units 17:22 22:23 22:23 RBC 3.94 L (4.30-5.90) m/uL Hgb 10.9 L (13.0-17.5) gm/dL Hct 34.8 L (39.0-53.0) % Plt Count 149 L (150-450) k/uL Lymphocytes # 0.7 L (1.0-4.8) k/uL APTT 46.2 H (22.0-30.0) sec Sodium (137-145) mmol/L Carbon Dioxide (22-30) mmol/L Creatinine (0.66-1.25) mg/dL Glucose (74-99) mg/dL Total Creatine Kinase 45 L (55-170) U/L Troponin I 0.121 H* (0.000-0.034) ng/mL 02/14/17 02/15/17 02/15/17 Range/Units 22:23 05:20 05:20 RBC 3.74 L (4.30-5.90) m/uL Hgb 10.2 L (13.0-17.5) gm/dL Hct 30.9 L (39.0-53.0) % Plt Count 115 L (150-450) k/uL Lymphocytes # 0.8 L (1.0-4.8) k/uL APTT 46.6 H (22.0-30.0) sec Sodium 135 L (137-145) mmol/L Carbon Dioxide 16 L (22-30) mmol/L Creatinine (0.66-1.25) mg/dL Glucose 236 H (74-99) mg/dL Total Creatine Kinase (55-170) U/L Troponin I (0.000-0.034) ng/mL 02/15/17 02/15/17 Range/Units 07:08 13:07 RBC (4.30-5.90) m/uL Hgb (13.0-17.5) gm/dL Hct (39.0-53.0) % Plt Count (150-450) k/uL Lymphocytes # (1.0-4.8) k/uL APTT 50.7 H (22.0-30.0) sec Sodium (137-145) mmol/L Carbon Dioxide 20 L (22-30) mmol/L Creatinine 1.27 H (0.66-1.25) mg/dL Glucose 234 H (74-99) mg/dL Total Creatine Kinase (55-170) U/L Troponin I (0.000-0.034) ng/mL Microbiology - Last 24 Hours (Table) 02/13/17 22:25 Blood Culture - Final Blood 02/13/17 22:51 Urine Culture - Final Urine,Voided 02/13/17 22:57 Blood Culture Gram Stain - Final Blood Blood Culture - Final Bacillus species Not Anthracis 02/13/17 22:25 Blood Culture Gram Stain - Preliminary Blood Blood Culture - Preliminary Staphylococcus species Assessment and Plan Plan: ASSESSMENT AND PLAN: 1. Sepsis secondary to an unknown etiology. Bacteremia with gram positive and bacillus 2. Radiologic diagnosis of colitis; however, no significant clinical correlation. 3. New onset atrial fibrillation with rapid ventricular rate. 4. Cerebrovascular accident. 5. Coronary artery disease. 6. Hypertension. 7. Lactic acidosis secondary to above. 8. Nonanion gap metabolic acidosis secondary to above. 9. Indeterminate troponin leak likely due to sepsis. PLAN: cxr reviewed clinically stable . ct abdomen noted granulomas on the right chest ct chest w/o contrast continue empiric abx HIDA scan with signs of RUQ pain repeat blood cultures today AN marce on aggrenox due to previous stroke, choice of anticoagulation was discussed. eliquis to be started after AN
[2017-02-15] MEDS ORDERED: methylPREDNISolone SOD SUCCI 40 MG/ML 1 ML VIAL IV STA (20:37)
[2017-02-15 20:47] LABS: Basophils % (A) 0 %; CHCM 30.6; Eosinophils % (A) 0 %; HCT 33.3 % (39.0-53.0); HDW 2.87; HGB 10.4 gm/dL (13.0-17.5); Hypochromasia Moderate; Luc # (Auto) 0.32; Luc % (Auto) 4; Lymphocytes # (A) 0.7 k/uL (1.0-4.8); Lymphocytes % (A) 8 %; MCH 27.6 pg (25.0-35.0); MCHC 31.3 g/dL (31.0-37.0); MCV 88.3 fL (80.0-100.0); Mean Platelet Volume 9.4; Monocytes # (A) 0.6 k/uL (0-1.0); Monocytes % (A) 8 %; Neutrophils # (A) 6.5 k/uL (1.3-7.7); Neutrophils % (A) 80 %; RBC 3.77 m/uL (4.30-5.90); RDW 15.1 % (11.5-15.5); WBC 8.2 k/uL (3.8-10.6); WBC (Perox) 7.94
[2017-02-15 20:58] LABS: Glucose,Whole Blood 354 mg/dL (75-99)
[2017-02-15 20:58] LABS: Glucose,Whole Blood 356 mg/dL (75-99)
--- NOTE | 2017-02-15 20:58 | CT ---
EXAMINATION TYPE: CT chest wo con DATE OF EXAM: 02/15/2017 COMPARISON: 11/20/2015 HISTORY: SOB CT DLP: 701 mGycm Automated exposure control for dose reduction was used. FINDINGS: There is patchy interstitial and alveolar infiltrate in the right lung. This is worse in the right lo wer lobe. There is a 1 cm calcified subpleural granuloma in the right lower lobe. There are mild bila teral pleural effusions. Heart is enlarged. There are large central pulmonary arteries. There is no e vidence of a pulmonary mass. There is mild interstitial infiltrate in the left lower lobe. IMPRESSION: MODERATE PATCHY AIRSPACE PNEUMONIA IN THE RIGHT LUNG IS ESSENTIALLY NEW COMPARED TO OLD CT SCAN. THER E ARE SOME CHRONIC INTERSTITIAL DENSITY IN THE LEFT LOWER LOBE CONSISTENT WITH PULMONARY FIBROSIS. CA RDIOMEGALY. THERE ARE NEW BILATERAL PLEURAL EFFUSIONS. LARGE PULMONARY ARTERIES CONSISTENT WITH PULMO NARY HYPERTENSION.
[2017-02-15] MEDS ORDERED: INSULIN LISPRO (humaLOG) 300 UNIT/3 ML VIAL SQ ONE (21:06)
[2017-02-15] MEDS: risperiDONE 0.25 MG TAB PO SCH (21:15)
[2017-02-15 21:34] LABS: Glucose,Whole Blood 341 mg/dL (75-99)
[2017-02-15] MEDS: PIPERACILLIN-TAZOBACTAM 3.375 GM in DEXTROSE/WATER 1 50ML.BAG IVPB SCH (22:33)
[2017-02-15] MEDS ORDERED: SODIUM CHLORIDE 0.9% 500 ML IV ONE (22:38)
[2017-02-16 00:17] LABS: Glucose,Whole Blood 322 mg/dL (75-99)
[2017-02-16] MEDS: VANCOMYCIN 1,250 MG in SODIUM CHLORIDE 0.9% 250 ML IVPB SCH ×2 (00:32→16:51)
[2017-02-16 01:02] LABS: Amorphous Sediment,Urine Rare /hpf; Appearance,Urine Turbid (Clear); Bilirubin,Urine Negative (Negative); Glucose,Urine (UA) 4+ (Negative); Granular Casts,Urine 99 /lpf (0); Ketones,Urine Negative (Negative); Leukocyte Esterase,Urine Negative (Negative); Nitrite,Urine Negative (Negative); PH, Urine 5.5 (5.0-8.0); Particle Count 28705; Protein,Urine 2+ (Negative); RBC,Urine 3 /hpf (0-5); Specific Gravity,Urine 1.012 (1.001-1.035); UA Billing (MACRO vs. MICRO) MICRO; Urobilinogen,Urine <2.0 mg/dL (<2.0)
[2017-02-16 02:43] LABS: Glucose,Whole Blood 368 mg/dL (75-99)
[2017-02-16] MEDS ORDERED: INSULIN REGULAR BOLUS (FROM DRIP BAG) IV ONE (02:43)
[2017-02-16] MEDS: INSULIN REGULAR 100 UNIT in SODIUM CHLORIDE 0.9% 100 ML IV SCH ×2 (03:08→16:55)
[2017-02-16 03:27] LABS: Blood Urea Nitrogen 15 mg/dL (9-20); Calcium 8.8 mg/dL (8.4-10.2); Carbon Dioxide 16 mmol/L (22-30); Glucose 338 mg/dL (74-99); Non-African American GFR(MDRD) 54 (>60 ml/min/1.73 sqM); Potassium 4.3 mmol/L (3.5-5.1); Sodium 136 mmol/L (137-145)
[2017-02-16 03:41] LABS: Anion Gap 16 mmol/L; Chloride 104 mmol/L (98-107)
[2017-02-16 03:46] LABS: Glucose,Whole Blood 299 mg/dL (75-99)
[2017-02-16 04:55] LABS: Glucose,Whole Blood 258 mg/dL (75-99)
[2017-02-16 05:08] LABS: Basophils % (A) 0 %; CH 27.2; CHCM 31.7; Eosinophils % (A) 0 %; HCT 29.9 % (39.0-53.0); HDW 2.82; HGB 9.5 gm/dL (13.0-17.5); Hypochromasia Slight; Luc # (Auto) 0.11; Luc % (Auto) 3; Lymphocytes # (A) 0.5 k/uL (1.0-4.8); Lymphocytes % (A) 11 %; MCH 27.4 pg (25.0-35.0); MCHC 31.8 g/dL (31.0-37.0); MCV 86.2 fL (80.0-100.0); Mean Platelet Volume 9.4; Monocytes # (A) 0.2 k/uL (0-1.0); Monocytes % (A) 5 %; Neutrophils # (A) 3.5 k/uL (1.3-7.7); Neutrophils % (A) 82 %; RBC 3.46 m/uL (4.30-5.90); RDW 15.3 % (11.5-15.5); WBC 4.3 k/uL (3.8-10.6)
[2017-02-16 05:57] LABS: ALT 26 U/L (21-72); AST 27 U/L (17-59); Alkaline Phosphatase 63 U/L (38-126); Anion Gap 12 mmol/L; Blood Urea Nitrogen 15 mg/dL (9-20); Carbon Dioxide 17 mmol/L (22-30); Chloride 108 mmol/L (98-107); Glucose 272 mg/dL (74-99); Non-African American GFR(MDRD) 56 (>60 ml/min/1.73 sqM); Phosphorous 2.7 mg/dL (2.5-4.5); Potassium 3.9 mmol/L (3.5-5.1); Sodium 137 mmol/L (137-145); Total Bilirubin 0.6 mg/dL (0.2-1.3); Total Protein 6.4 g/dL (6.3-8.2)
[2017-02-16 06:03] LABS: Glucose,Whole Blood 248 mg/dL (75-99)
[2017-02-16 07:15] LABS: Glucose,Whole Blood 218 mg/dL (75-99)
[2017-02-16] MEDS ORDERED: INSULIN LISPRO (humaLOG) 300 UNIT/3 ML VIAL SQ SCH (07:30)
--- NOTE | 2017-02-16 07:54 | XR ---
EXAMINATION TYPE: XR chest 1V portable DATE OF EXAM: 02/16/2017 CLINICAL HISTORY: Difficulty breathing progress study. TECHNIQUE: Single AP portable upright view of the chest is obtained. COMPARISON: Chest x-ray and CT chest from one day earlier FINDINGS: There is cardiomegaly with multi lead pacemaker/AICD redemonstrated. Sternal wires are aga in seen. There is chronic parenchymal change bilaterally without suspicious new focal airspace opacit y or pneumothorax seen bilaterally. Tiny bilateral pleural effusions and patchy bilateral lower lung edema and/or infiltrates seen on CT are less well seen on x-ray. Calcified nodules right lung are red emonstrated. IMPRESSION: Suspect overall stable findings as there is chronic emphysematous change and cardiomegaly with tiny effusions and bilateral edema and/or infiltrates likely product of CHF exacerbation on CT less well seen on x-ray. No new infiltrates are present.
[2017-02-16] MEDS: IPRATROPIUM-ALBUTEROL 3 ML NEB INHALATION SCH ×4 (08:01→20:10)
[2017-02-16] MEDS ORDERED: fentaNYL (PF) 50 MCG/ML 2 ML AMP ONE (08:10)
[2017-02-16] MEDS ORDERED: MIDAZOLAM 2 MG/2 ML VIAL ONE (08:10)
[2017-02-16] MEDS: BENZOCAINE SPRAY 100 APPLIC/CAN TOPICAL ONE ×2 (08:22→08:27)
[2017-02-16] MEDS: HEPARIN SODIUM,PORCINE/D5W PMX 25,000 UNIT in DEXTROSE/WATER 1 500ML.BAG IV SCH ×2 (08:26→16:54)
[2017-02-16] MEDS: SODIUM CHLORIDE 0.9% 1,000 ML IV SCH ×2 (08:27→10:27)
--- NOTE | 2017-02-16 08:27 | CONS ---
DATE OF CONSULTATION: 02/15/2017 REASON FOR CONSULTATION: Fever and bacteremia. HISTORY OF PRESENT ILLNESS: The patient is a 77-year-old male was brought into the ER at [facility] on 02/13/2017 with chief complaints of nausea, vomiting and diarrhea. The patient's symptoms started the day prior to presentation to the hospital with progressive worsening that led the patient to be brought to the ER for evaluation. Patient complains of generalized weakness associated with it as well as abdominal pain. Denies significant abdominal pain. The patient denies having any worsening of headache and no significant URI symptoms. No significant shortness of breath. Minimal cough. On arrival to the ER, the patient was noticed to have a fever of 101 degrees Fahrenheit with another fever yesterday of 101.5. The patient on admission did have a normal white count of 10.5. The patient did have blood cultures obtained on 02/13 with multiple different sets and all of them are showing Streptococcus species and ( ) then. The patient has been treated with multiple antibiotics including Rocephin, vancomycin and Levaquin. I was asked to see the patient for further recommendations regarding antibiotic therapy. Patient also had lactic acid drawn which was 1.4 on 02/14 and is up to 3.[address] of abdomen and pelvis has been done that raises the possibility of colitis. REVIEW OF SYSTEMS: CONSTITUTIONAL: Positive for weakness and fever. EYES: No complaint. ENT: No complaint. RESPIRATORY: As per HPI. CARDIOVASCULAR: No complaint. ENT: No complaint. GASTROINTESTINAL: As per HPI. MUSCULOSKELETAL: No complaint. INTEGUMENTARY: No complaint. ENT: No complaint. PSYCHOLOGIC: No complaint. ENDOCRINE: No complaint. NEUROLOGIC: No complaint. His past medical history is significant for coronary artery disease, CVA, TIA, diabetes mellitus, hyperlipidemia, myocardial infarction. Past surgical history: Coronary artery bypass grafting, AICD placement, ( ) valve replacement, ( ) and hernia repair. SOCIAL HISTORY: No history of smoking, drinking or drug use. FAMILY HISTORY: Mother and sister with history of cancer. ALLERGIES: PLAVIX. Medications includes the patient is currently on: 1. Tylenol. 2. DuoNeb. 3. Aggrenox. 4. Heparin. 5. Humalog. 6. Zestril. 7. Lopressor. 8. Flagyl. 9. Narcan. 10. Vancomycin, pharmacy to dose. On examination, blood pressure is 153/75 with a pulse of 82, temperature 98.7. He is 95% on 2 L nasal cannula. General description is an elderly male, lying in bed in no distress. No tachypnea or accessory muscle of respiration use. HEENT examination shows slight pallor. There is no scleral icterus. Oral mucous membrane is dry. NECK: Trachea central. There is no thyromegaly. LUNGS: Unlabored breathing with decreased breath sounds at the bases. No wheeze or crackle. HEART: S1, S2 regular rate and rhythm. ABDOMEN: Soft, nondistended, minimally tender local area. No guarding or rigidity. EXTREMITIES: No edema of feet. SKIN: No rash or mass palpable. NEUROLOGICAL: The patient is awake, alert and oriented times three. Mood and affect normal. LABS: Hemoglobin is 10.4, white count 8.2 with a BUN of 16, creatinine 1.27, lactic acid level 3.9. Liver enzymes evaluated. Urine is negative. Stool for C. difficile came back negative. DIAGNOSTIC IMPRESSION AND PLAN: 1. Patient admitted to hospital with acute nausea, vomiting and diarrhea with CT showing evidence of colitis likely an infectious colitis or underlying ischemic colitis cannot be entirely excluded. The patient noticed to have significant history of underlying atherosclerotic heart disease with chronic disease as well as CVA, TIA. 2. Patient also with CT of the chest did show evidence of pneumonia. The patient's history of vomiting and possible aspiration pneumonitis needs to be excluded. PLAN: 1. We will obtain stool studies and stool cultures to rule out infectious diarrhea. Stool for C. difficile has been negative. 2. We will try to obtain sputum for gram stain culture and sensitivity. 3. We will discontinue the Rocephin and start the patient on Zosyn which should cover for the ischemic colitis as well as ( ) pneumonia and continue vancomycin. 4. The patient did have a positive blood culture with different pathogen with Staphylococcus species ( ) pointing more towards contamination rather than to pathogen. Repeat blood culture will be ordered to make sure no evidence of any persistent bacteremia. 5. We will follow up on his clinical condition to further adjust medications if needed. Thank you for this consultation. We will follow this patient along with you.
[2017-02-16] MEDS ORDERED: fentaNYL (PF) 50 MCG/ML 2 ML AMP IV ONE (08:29)
[2017-02-16] MEDS ORDERED: MIDAZOLAM 2 MG/2 ML VIAL IVP ONE (08:29)
[2017-02-16 08:30] LABS: Glucose,Whole Blood 194 mg/dL (75-99)
[2017-02-16] MEDS: PIPERACILLIN-TAZOBACTAM 3.375 GM in DEXTROSE/WATER 1 50ML.BAG IVPB SCH ×2 (08:54→15:47)
[2017-02-16 09:03] LABS: Glucose,Whole Blood 168 mg/dL (75-99)
[2017-02-16] MEDS: metroNIDAZOLE-NS PMX 500 MG in SALINE 1 100ML.BAG IVPB SCH ×2 (10:04→15:44)
[2017-02-16] MEDS: LISINOPRIL 20 MG TAB PO SCH (10:06)
[2017-02-16] MEDS: PANTOPRAZOLE 40 MG/10 ML VIAL IV SCH (10:06)
[2017-02-16] MEDS: METOPROLOL TARTRATE 25 MG TAB PO SCH ×2 (10:06→20:53)
[2017-02-16 10:27] LABS: Glucose,Whole Blood 175 mg/dL (75-99)
[2017-02-16 11:23] LABS: Glucose,Whole Blood 155 mg/dL (75-99)
[2017-02-16 11:42] LABS: Hemoglobin A1C 6.1 % (4.2-6.1)
--- NOTE | 2017-02-16 11:59 | ECHOT ---
DATE OF SERVICE: INDICATION: Evaluation of mitral valve, bioprosthesis. PROCEDURE: After explaining the procedure, its risk and complications to the patient, blood pressure, heart rate and saturations were monitored. The throat was sprayed with Xylocaine. He received 50 mcg intravenous fentanyl and 2 mg intravenous Versed. After obtaining moderate conscious sedated state, the probe was introduced into the esophagus without difficulty. Images were obtained. Following that, the probe was removed. There were no immediate complications. FINDINGS: Left atrial size is dilated. Spontaneous contrast was noted. Left ventricular size is normal. The inferior wall is hypokinetic. The ejection fraction is estimated at 40%. The aortic valve has fibrocalcific changes of the aortic cusp with preserved opening. Mitral valve is a bioprosthetic valve with thickening of the leaflets but no evidence of regurgitation. The tricuspid valve appears to be normal. Descending thoracic aorta revealed mild to moderate atherosclerotic changes. No pericardial effusion was noted. Contrast bubble study revealed no evidence of shunting across the interatrial septum. A wire was noted in the right atrium. Chiari network was noted in the right atrium. Doppler pulse waves were obtained and revealed trace to mild mitral regurgitation with moderate tricuspid regurgitation. There was no shunting by color Doppler study. CONCLUSION: 1. Dilated left atrium with spontaneous contrast. 2. Bioprosthetic mitral valve with mild thickening in the mitral valve leaflets and trace to mild mitral regurgitation and no evidence of vegetations. 3. Aortic sclerosis; no evident stenosis. 4. Moderate tricuspid regurgitation with no evidence of pulmonary hypertension. 5. Wire was noted in the right atrium. 6. Chiari network was noted in the right atrium. 7. No shunting across the interatrial septum. 8. Mild to moderate atherosclerotic changes of the descending thoracic aorta.
--- NOTE | 2017-02-16 12:42 | P.CNPUL ---
History of Present Illness Consult date: 02/16/17 Chief complaint: Sepsis History of present illness: 77-year-old male patient with an extensive cardiovascular history involving history of coronary artery disease, previous bypass surgery and previous mitral valve repair with a bioprosthetic valve, along with history of pacer/ defibrillator insertion, and history of previous CVA with left-sided weakness, presented to the hospital because of generalized weakness and lethargy. Subsequently after coming the hospital the patient started becoming nauseous and started having episodes of emesis and loose bowel movements. Blood cultures came back positive for staph hominis and a second blood culture came back positive for gram-positive bacillus, nonanthrax. The patient had a CAT scan of the abdomen that showed diffuse prominence of the ivan of the colon and rectum and colitis was suspected. The patient had also probably a fatty liver infiltration and some bibasilar atelectatic changes and a calcified her [place] the right mid/right lower lobe area. Based on this, ID was consulted, and the patient was started on IV heparin. No significant leukocytosis. No hemodynamic instability at this point. No chest pain. The patient underwent a AN today that showed no evidence of any valvular vegetation. CAT scan of the chest was also done that showed some limited patchy infiltrates in lung bases bilaterally and there are also small effusions. No evidence of any pulmonary embolism. The patient was having some limited mental status change which improved and this morning he seems to be communicating and conversing appropriately. Abdomen is slightly tender. No rebound tenderness or guarding. No acute abdomen. No fever or chills. Lactic acid was elevated at 3.8 and subsequently dropped down to 1.4 and follow-up levels show that the lactic acid is up to 3.8 again. Stool for C. diff is been negative. Review of Systems All systems: negative Constitutional: Denies chills, Denies fever Eyes: denies blurred vision, denies pain Ears, nose, mouth and throat: Denies headache, Denies sore throat Cardiovascular: Denies chest pain, Denies shortness of breath Respiratory: Denies cough Gastrointestinal: Denies abdominal pain, Denies diarrhea, Denies nausea, Denies vomiting Musculoskeletal: Denies myalgias Integumentary: Denies pruritus, Denies rash Neurological: Denies numbness, Denies weakness Psychiatric: Denies anxiety, Denies depression Endocrine: Denies fatigue, Denies weight change Past Medical History Past Medical History: Coronary Artery Disease (CAD), CVA/TIA, Diabetes Mellitus , Hyperlipidemia, Myocardial Infarction ([place]) Additional Past Medical History / Comment(s): Coronary artery disease, previous bypass surgery, previous mitral valve replacement, history of CVA, diabetes mellitus, hypertension, hyperlipidemia, degenerative arthritis, nephrolithiasis , difficulty with mobility and the patient walks around with the help of a cane. Last Myocardial Infarction Date:: 1995 History of Any Multi-Drug Resistant Organisms: None Reported Past Surgical History: AICD, Cardiac Valve Replacement, Coronary Bypass/CABG, Heart Catheterization, Hernia Repair Additional Past Surgical History / Comment(s): removal of kidney stones Past Anesthesia/Blood Transfusion Reactions: Previous Problems w/ Anesthesia Additional Past Anesthesia/Blood Transfusion Reaction / Comment(s): with pacemaker procedure-felt eveything. Type of Cardiac Device: AICD Device Placement Date:: 9-10 yrs ago Past Psychological History: No Psychological Hx Reported Smoking Status: Never smoker Past Alcohol Use History: None Reported Past Drug Use History: None Reported - Past Family History Mother Family Medical History: Cancer Sister(s) Family Medical History: Cancer Additional Family Medical History / Comment(s): from [place] Medications and Allergies Home Medications Medication Instructions Recorded Confirmed Type Aspirin/Dipyridamole [Aggrenox 1 tab PO BID 08/11/15 02/14/17 History 25MG -200MG] Enalapril [Vasotec] 10 mg PO BID 08/11/15 02/14/17 History Metoprolol Tartrate [Lopressor] 50 mg PO BID 08/11/15 02/14/17 History metFORMIN HCL 1,000 mg PO BID 02/14/17 02/14/17 History Allergies Allergy/AdvReac Type Severity Reaction Status Date / Time clopidogrel bisulfate Allergy Unknown Verified 02/14/17 09:27 [From Plavix] Physical Exam Vitals: Vital Signs Temp Pulse Pulse Resp BP BP Pulse Ox 02/16/17 11:28 75 02/16/17 11:05 70 02/16/17 11:00 70 20 130/74 100 02/16/17 10:30 70 24 140/72 99 02/16/17 10:00 71 26 H 119/67 99 02/16/17 09:30 69 22 120/62 98 02/16/17 09:00 80 24 111/55 97 02/16/17 08:30 97.4 F L 79 28 H 140/74 99 02/16/17 08:18 77 02/16/17 08:06 69 02/16/17 08:00 73 20 122/65 95 02/16/17 07:30 70 23 119/61 97 02/16/17 06:00 76 21 111/65 100 02/16/17 05:30 79 19 93/54 100 02/16/17 05:00 77 23 91/53 99 02/16/17 04:30 87 23 124/68 98 02/16/17 04:00 97.5 F L 82 94 24 114/69 99 02/16/17 03:30 70 23 123/68 97 02/16/17 03:00 87 27 H 129/67 97 02/16/17 02:30 84 28 H 133/74 98 02/16/17 02:00 88 25 H 119/67 97 02/16/17 01:30 71 31 H 123/77 97 02/16/17 01:19 90 22 150/80 02/16/17 00:20 94 31 H 02/16/17 00:10 97.8 F 28 H 121/71 98 02/15/17 23:20 99.4 F 94 36 H 141/69 97 02/15/17 20:00 97 F L 98 82 32 H 192/86 99 02/15/17 19:45 96 02/15/17 17:50 94 02/15/17 17:36 94 02/15/17 16:00 98.7 F 82 18 153/75 95 02/15/17 15:18 90 02/15/17 15:05 88 Intake and Output 02/15/17 02/16/17 02/16/17 22:59 06:59 14:59 Intake Total 100 794.527 747.230 Output Total 450 800 350 Balance -350 -5.473 397.230 Intake: IV 525 300 Sodium Chloride 0.9% 1, 525 300 000 ml @ 75 mls/hr IV . [id number] [facility] Rx#:[id number] Intake, IV Titration 269.527 447.230 Amount Heparin Sodium,Porcine/ 421.232 D5w Pmx 25,000 unit In Dextrose/Water 1 500ml. bag @ 12 UNITS/KG/HR 18. 94 mls/hr IV .Q24H [facility] Rx #:[id number] Insulin Regular 100 unit 19.527 25.998 In Sodium Chloride 0.9% 100 ml @ Per Protocol IV .Q0M [facility] Rx#:[id number] Vancomycin 1,250 mg In 250 Sodium Chloride 0.9% 250 ml @ 125 mls/hr IVPB Q16H [facility] Rx#:[id number] Oral 100 Output: Urine 250 800 350 Stool 200 Other: Voiding Method Urinal Indwelling Catheter Indwelling Catheter # Voids 1 Weight 78 kg 78 kg Head exam was generally normal. There was no scleral icterus or corneal arcus. Mucous membranes were moist.Neck was supple and without jugular venous distension, thyromegaly, or carotid bruits. Carotids were easily palpable bilaterally. There was no adenopathy. Lung sounds are diminished in lung bases bilaterally along with some few bibasilar crackles. Sternum stable clean and intact. There is a faint grade 2 systolic ejection murmur heard throughout the precordium. Abdomen is soft. There is some mild direct tenderness. No rebound tensile guarding. Bowel sounds are present.Examination of the extremities revealed easily palpable radial, femoral and pedal pulses. There was no cyanosis, clubbing or edema. Results - Laboratory Findings CBC and BMP: 02/16/17 04:44 02/16/17 04:44 PT/INR, D-dimer PT 10.7 sec (9.0-12.0) 02/13/17 22:25 INR 1.1 (<1.1) 02/13/17 22:25 Abnormal lab findings: Abnormal Labs 02/13/17 02/13/17 02/13/17 22:25 22:25 22:25 RBC Hgb 12.7 L Hct Plt Count Neutrophils # 8.9 H Lymphocytes # 0.7 L APTT Sodium 136 L Chloride Carbon Dioxide 18 L BUN 22 H Creatinine Glucose 283 H POC Glucose (mg/dL) Plasma Lactic Acid Gianni 3.8 H* ALT 19 L Total Creatine Kinase Troponin I Albumin Urine Protein Urine Glucose (UA) Urine Ketones Urine Blood Amorphous Sediment Urine Bacteria Urine Mucus 02/13/17 02/14/17 02/14/17 22:51 05:30 05:30 RBC Hgb Hct Plt Count Neutrophils # Lymphocytes # APTT 46.4 H Sodium Chloride Carbon Dioxide BUN Creatinine Glucose POC Glucose (mg/dL) Plasma Lactic Acid Gianni ALT Total Creatine Kinase 40 L Troponin I 0.083 H* Albumin Urine Protein 3+ H Urine Glucose (UA) Trace H Urine Ketones 1+ H Urine Blood Small H Amorphous Sediment Urine Bacteria Rare H Urine Mucus Rare H 02/14/17 02/14/17 02/14/17 11:19 15:41 17:22 RBC Hgb Hct Plt Count Neutrophils # Lymphocytes # APTT 31.9 H Sodium Chloride Carbon Dioxide BUN Creatinine Glucose POC Glucose (mg/dL) Plasma Lactic Acid Gianni ALT Total Creatine Kinase 43 L 45 L Troponin I 0.121 H* 0.121 H* Albumin Urine Protein Urine Glucose (UA) Urine Ketones Urine Blood Amorphous Sediment Urine Bacteria Urine Mucus 02/14/17 02/14/17 02/14/17 22:23 22:23 22:23 RBC 3.94 L Hgb 10.9 L Hct 34.8 L Plt Count 149 L Neutrophils # Lymphocytes # 0.7 L APTT 46.2 H Sodium 135 L Chloride Carbon Dioxide 16 L BUN Creatinine Glucose 236 H POC Glucose (mg/dL) Plasma Lactic Acid Gianni ALT Total Creatine Kinase Troponin I Albumin Urine Protein Urine Glucose (UA) Urine Ketones Urine Blood Amorphous Sediment Urine Bacteria Urine Mucus 02/15/17 02/15/17 02/15/17 05:20 05:20 07:08 RBC 3.74 L Hgb 10.2 L Hct 30.9 L Plt Count 115 L Neutrophils # Lymphocytes # 0.8 L APTT 46.6 H Sodium Chloride Carbon Dioxide 20 L BUN Creatinine 1.27 H Glucose 234 H POC Glucose (mg/dL) Plasma Lactic Acid Gianni ALT Total Creatine Kinase Troponin I Albumin Urine Protein Urine Glucose (UA) Urine Ketones Urine Blood Amorphous Sediment Urine Bacteria Urine Mucus 02/15/17 02/15/17 02/15/17 13:07 20:15 20:15 RBC 3.77 L Hgb 10.4 L Hct 33.3 L Plt Count 129 L Neutrophils # Lymphocytes # 0.7 L APTT 50.7 H Sodium Chloride Carbon Dioxide BUN Creatinine Glucose POC Glucose (mg/dL) Plasma Lactic Acid Gianni 3.9 H* ALT Total Creatine Kinase Troponin I Albumin Urine Protein Urine Glucose (UA) Urine Ketones Urine Blood Amorphous Sediment Urine Bacteria Urine Mucus 02/15/17 02/15/17 02/15/17 20:54 20:55 21:32 RBC Hgb Hct Plt Count Neutrophils # Lymphocytes # APTT Sodium Chloride Carbon Dioxide BUN Creatinine Glucose POC Glucose (mg/dL) 354 H 356 H 341 H Plasma Lactic Acid Gianni ALT Total Creatine Kinase Troponin I Albumin Urine Protein Urine Glucose (UA) Urine Ketones Urine Blood Amorphous Sediment Urine Bacteria Urine Mucus 02/16/17 02/16/17 02/16/17 00:15 00:45 02:33 RBC Hgb Hct Plt Count Neutrophils # Lymphocytes # APTT Sodium Chloride Carbon Dioxide BUN Creatinine Glucose POC Glucose (mg/dL) 322 H Plasma Lactic Acid Gianni 3.8 H* ALT Total Creatine Kinase Troponin I Albumin Urine Protein 2+ H Urine Glucose (UA) 4+ H Urine Ketones Urine Blood Small H Amorphous Sediment Rare H Urine Bacteria Urine Mucus 02/16/17 02/16/17 02/16/17 02:33 02:42 03:44 RBC Hgb Hct Plt Count Neutrophils # Lymphocytes # APTT Sodium 136 L Chloride Carbon Dioxide 16 L BUN Creatinine 1.28 H Glucose 338 H POC Glucose (mg/dL) 368 H 299 H Plasma Lactic Acid Gianni ALT Total Creatine Kinase Troponin I Albumin Urine Protein Urine Glucose (UA) Urine Ketones Urine Blood Amorphous Sediment Urine Bacteria Urine Mucus 02/16/17 02/16/17 02/16/17 04:44 04:44 04:44 RBC 3.46 L Hgb 9.5 L Hct 29.9 L Plt Count 128 L Neutrophils # Lymphocytes # 0.5 L APTT 82.7 H Sodium Chloride 108 H Carbon Dioxide 17 L BUN Creatinine Glucose 272 H POC Glucose (mg/dL) Plasma Lactic Acid Gianni ALT Total Creatine Kinase Troponin I Albumin 3.4 L Urine Protein Urine Glucose (UA) Urine Ketones Urine Blood Amorphous Sediment Urine Bacteria Urine Mucus 02/16/17 02/16/17 02/16/17 04:53 06:01 07:13 RBC Hgb Hct Plt Count Neutrophils # Lymphocytes # APTT Sodium Chloride Carbon Dioxide BUN Creatinine Glucose POC Glucose (mg/dL) 258 H 248 H 218 H Plasma Lactic Acid Gianni ALT Total Creatine Kinase Troponin I Albumin Urine Protein Urine Glucose (UA) Urine Ketones Urine Blood Amorphous Sediment Urine Bacteria Urine Mucus 02/16/17 02/16/17 02/16/17 08:28 09:01 10:26 RBC Hgb Hct Plt Count Neutrophils # Lymphocytes # APTT Sodium Chloride Carbon Dioxide BUN Creatinine Glucose POC Glucose (mg/dL) 194 H 168 H 175 H Plasma Lactic Acid Gianni ALT Total Creatine Kinase Troponin I Albumin Urine Protein Urine Glucose (UA) Urine Ketones Urine Blood Amorphous Sediment Urine Bacteria Urine Mucus 02/16/17 11:22 RBC Hgb Hct Plt Count Neutrophils # Lymphocytes # APTT Sodium Chloride Carbon Dioxide BUN Creatinine Glucose POC Glucose (mg/dL) 155 H Plasma Lactic Acid Gianni ALT Total Creatine Kinase Troponin I Albumin Urine Protein Urine Glucose (UA) Urine Ketones Urine Blood Amorphous Sediment Urine Bacteria Urine Mucus - Diagnostic Findings CT scan - chest: image reviewed Assessment and Plan Plan: Assessment 1 diffuse colitis with secondary bacteremia and sepsis. Rule out underlying ischemic colitis. Echocardiogram was done and subsequently a AN was performed and there is no evidence of endocarditis. The patient has staph and gram- positive bacillus in the blood. Rule out anaerobic septicemia. 2 nausea vomiting and generalized weakness likely secondary to sepsis 3 coronary artery disease with previous bypass surgery 4 mitral valve replacement, prosthetic valve 5 diabetes mellitus, 6 CVA, history of 7 hyperlipidemia 8 AICD placement 9 mild lactic acidosis Plan Continue current antibiotic coverage. Consult general surgery. Consult infectious disease. Give the patient ICU for another 24 hours for further monitoring. Monitor lactic acid level. Monitor renal function. Tighter control of blood sugar and insulin drip if needed. We'll continue to follow.
[2017-02-16 12:49] LABS: Glucose,Whole Blood 170 mg/dL (75-99)
[2017-02-16 13:17] LABS: Glucose,Whole Blood 178 mg/dL (75-99)
[2017-02-16 14:16] LABS: Glucose,Whole Blood 148 mg/dL (75-99)
--- NOTE | 2017-02-16 14:58 | NM ---
EXAMINATION TYPE: NM hepatobiliary w EF DATE OF EXAM: 02/16/2017 COMPARISON: CT abdomen and pelvis from 2 days ago. HISTORY: Right upper quadrant pain per order. Epigastric pain with diminished appetite nausea and vom iting per patient. TECHNIQUE: After the intravenous administration of 4.5 mCi Tc 99m Mebrofenin hepatobiliary scintigrap hy is performed. Immediate images post injection. FINDINGS: There is satisfactory initial accumulation of tracer by the liver. The gallbladder is visualized wit hin 20 minutes. The small bowel activity is noted within 45 minutes. At one hour 8 ounces of oral e nsure plus is given to mimic CCK and gallbladder ejection fraction is calculated at 19 %, diminished from the normal range. Therefore there is no scintigraphic evidence of cystic or common bile duct ob struction to suggest acute cholecystitis. Diminished ejection fraction is consistent with chronic cho lecystitis or gallbladder dyskinesia. IMPRESSION: Ejection fraction is 19%, diminished from the normal range, scintigraphic findings are co nsistent with gallbladder dyskinesia.
[2017-02-16 15:38] LABS: Glucose,Whole Blood 176 mg/dL (75-99)
[2017-02-16 16:39] LABS: Glucose,Whole Blood 201 mg/dL (75-99)
--- NOTE | 2017-02-16 16:56 | PN ---
This gentleman has been admitted with what seems to be a Gram-negative sepsis-type picture. He has a mitral valve which is a tissue mitral valve. Transesophageal echo did not reveal any evidence of vegetations. Dr. Garcia performed the procedure today. Patient is in atrial fibrillation in and out with underlying paced rhythm. He needs to be anticoagulated, but he has issues with Coumadin. For now we will continue IV heparin as per protocol and see how he does. Vital signs are stable. S1, S2 heard normally. Lungs reveal scattered rhonchi. Abdomen and lower extremity exam unchanged. Patient will be seen by Dr. Parson as well.
[2017-02-16 17:54] LABS: Glucose,Whole Blood 206 mg/dL (75-99)
[2017-02-16] MEDS: DIPYRIDAMOLE-ASPIRIN 200-25 MG 1 EACH CPMP.12HR PO SCH ×2 (18:42→18:57)
[2017-02-16 18:58] LABS: Glucose,Whole Blood 239 mg/dL (75-99)
[2017-02-16 19:57] LABS: Glucose,Whole Blood 209 mg/dL (75-99)
[2017-02-16] MEDS: risperiDONE 0.25 MG TAB PO SCH (20:53)
[2017-02-16 21:12] LABS: Glucose,Whole Blood 224 mg/dL (75-99)
[2017-02-16 22:04] LABS: Glucose,Whole Blood 186 mg/dL (75-99)
[2017-02-16 23:10] LABS: Glucose,Whole Blood 177 mg/dL (75-99)
[2017-02-17 00:36] LABS: Glucose,Whole Blood 119 mg/dL (75-99)
[2017-02-17] MEDS: PIPERACILLIN-TAZOBACTAM 3.375 GM in DEXTROSE/WATER 1 50ML.BAG IVPB SCH ×4 (00:42→23:44)
[2017-02-17] MEDS: metroNIDAZOLE-NS PMX 500 MG in SALINE 1 100ML.BAG IVPB SCH ×4 (00:43→23:44)
[2017-02-17 01:17] LABS: Glucose,Whole Blood 102 mg/dL (75-99)
[2017-02-17 02:05] LABS: Glucose,Whole Blood 123 mg/dL (75-99)
[2017-02-17] MEDS: SODIUM CHLORIDE 0.9% 1,000 ML IV SCH ×3 (02:43→08:09)
[2017-02-17 03:08] LABS: Glucose,Whole Blood 151 mg/dL (75-99)
[2017-02-17 04:10] LABS: Glucose,Whole Blood 145 mg/dL (75-99)
[2017-02-17 04:46] LABS: Basophils % (A) 0 %; CH 27.3; CHCM 32.2; Eosinophils # (A) 0.1 k/uL (0-0.7); Eosinophils % (A) 1 %; HCT 30.6 % (39.0-53.0); HDW 2.93; HGB 9.9 gm/dL (13.0-17.5); Hypochromasia Slight; Luc # (Auto) 0.15; Luc % (Auto) 2; Lymphocytes # (A) 0.9 k/uL (1.0-4.8); Lymphocytes % (A) 9 %; MCH 27.6 pg (25.0-35.0); MCHC 32.3 g/dL (31.0-37.0); MCV 85.2 fL (80.0-100.0); Mean Platelet Volume 9.9; Monocytes # (A) 0.4 k/uL (0-1.0); Monocytes % (A) 4 %; Neutrophils # (A) 8.1 k/uL (1.3-7.7); Neutrophils % (A) 84 %; RBC 3.59 m/uL (4.30-5.90); RDW 15.4 % (11.5-15.5); WBC 9.6 k/uL (3.8-10.6); WBC (Perox) 10.46
[2017-02-17 05:05] LABS: Anion Gap 11 mmol/L; Blood Urea Nitrogen 16 mg/dL (9-20); Calcium 8.9 mg/dL (8.4-10.2); Carbon Dioxide 21 mmol/L (22-30); Chloride 109 mmol/L (98-107); Glucose 133 mg/dL (74-99); Magnesium 1.7 mg/dL (1.6-2.3); Non-African American GFR(MDRD) 58 (>60 ml/min/1.73 sqM); Potassium 3.2 mmol/L (3.5-5.1); Sodium 141 mmol/L (137-145)
[2017-02-17 05:08] LABS: Glucose,Whole Blood 161 mg/dL (75-99)
[2017-02-17] MEDS: MAGNESIUM SULFATE-D5W PMX 1 GM in DEXTROSE/WATER 1 100ML.BAG IVPB SCH ×2 (05:45→06:57)
[2017-02-17] MEDS: POTASSIUM CHLORIDE ER 20 MEQ TAB.ER PO SCH ×3 (05:45→13:49)
[2017-02-17 06:06] LABS: Glucose,Whole Blood 141 mg/dL (75-99)
[2017-02-17] MEDS: HEPARIN SODIUM,PORCINE 5,000 UNIT/ML 1 ML VIAL IV PRN (06:32)
[2017-02-17] MEDS ORDERED: VANCOMYCIN TROUGH DUE 1 EACH MISC MISCELLANE ONE (07:15)
--- NOTE | 2017-02-17 07:29 | XR ---
EXAMINATION TYPE: XR chest 1V DATE OF EXAM: 02/17/2017 CLINICAL HISTORY: Difficulty breathing progress study. TECHNIQUE: Single AP portable upright view of the chest is obtained. COMPARISON: Chest x-ray from one day earlier. CT exam from 2 days earlier. FINDINGS: There is cardiomegaly with multi lead pacemaker/AICD redemonstrated. Sternal wires are aga in seen. There is chronic parenchymal change bilaterally without suspicious new focal airspace opacit y or pneumothorax seen bilaterally. Tiny bilateral pleural effusions and patchy bilateral lower lung edema and/or infiltrates seen on CT are less well seen on x -ray. Calcified nodules right lung are re demonstrated. Atherosclerotic thoracic aorta is present. Osseous structures are intact. IMPRESSION: Chronic emphysematous change with tiny effusions and bilateral edema and/or infiltrates s een on CT less well seen on plain films. No new infiltrates are identified.
[2017-02-17 07:48] LABS: Glucose,Whole Blood 124 mg/dL (75-99)
[2017-02-17] MEDS: IPRATROPIUM-ALBUTEROL 3 ML NEB INHALATION SCH ×4 (07:53→19:56)
[2017-02-17] MEDS: VANCOMYCIN 1,250 MG in SODIUM CHLORIDE 0.9% 250 ML IVPB SCH ×2 (07:54→23:44)
[2017-02-17] MEDS: LISINOPRIL 20 MG TAB PO SCH (08:08)
[2017-02-17] MEDS: DIPYRIDAMOLE-ASPIRIN 200-25 MG 1 EACH CPMP.12HR PO SCH ×2 (08:08→20:34)
[2017-02-17] MEDS: METOPROLOL TARTRATE 25 MG TAB PO SCH ×2 (08:09→20:37)
[2017-02-17] MEDS: PANTOPRAZOLE 40 MG/10 ML VIAL IV SCH (08:09)
[2017-02-17 09:03] LABS: Glucose,Whole Blood 179 mg/dL (75-99)
[2017-02-17 10:16] LABS: Glucose,Whole Blood 212 mg/dL (75-99)
--- NOTE | 2017-02-17 10:36 | PN ---
DATE OF SERVICE: 02/17/2017 Reason for follow-up: 1. Bacteremia. 2. Sepsis. Question abdominal source. 3. Aspiration pneumonia. INTERVAL HISTORY: The patient is afebrile. Has been transferred out of the ICU and patient is hemodynamically stable, not on any pressor support. The patient denies any further nausea and vomiting, tolerating a full liquid diet. Denies having any further diarrhea. Overall breathing has improved. On examination, blood pressure 115/57 with pulse 64, temperature 98. He is 100% on 2 liters nasal cannula. General description is an elderly male lying in bed in no distress. RESPIRATORY SYSTEM: Unlabored breathing. Some decreased breath sounds at the base. No wheeze. HEART: S2. Regular rate and rhythm. ABDOMEN: Soft. No tenderness. LABS: Hemoglobin 11.5, white count 4.3. BUN of 15, creatinine 1.24, HIDA scan suspicious for a low ejection fraction and a question of dyskinesia versus chronic cholecystitis. Follow-up blood culture has been negative. DIAGNOSTIC IMPRESSION AND PLAN: Patient admitted to the hospital with sepsis with significant gastrointestinal symptoms with a question of possible ischemic colitis to be likely top of the list. He did have a stool for C. difficile that was negative. Did have Staph ( ) and bacillus in the blood could be ( ) contamination. The patient did have AN that was negative for any endocarditis. Currently covered with Zosyn and Vanco will be continued, adjusting antibiotic depending upon clinical response. Continue supportive care.
[2017-02-17 10:58] LABS: Glucose,Whole Blood 211 mg/dL (75-99)
[2017-02-17 12:08] LABS: Glucose,Whole Blood 183 mg/dL (75-99)
[2017-02-17] MEDS: HEPARIN SODIUM,PORCINE/D5W PMX 25,000 UNIT in DEXTROSE/WATER 1 500ML.BAG IV SCH (12:11)
--- NOTE | 2017-02-17 12:37 | P.PN ---
Subjective 77-year-old male patient with an extensive cardiovascular history involving history of coronary artery disease, previous bypass surgery and previous mitral valve repair with a bioprosthetic valve, along with history of pacer/ defibrillator insertion, and history of previous CVA with left-sided weakness, presented to the hospital because of generalized weakness and lethargy. Subsequently after coming the hospital the patient started becoming nauseous and started having episodes of emesis and loose bowel movements. Blood cultures came back positive for staph hominis and a second blood culture came back positive for gram-positive bacillus, nonanthrax. The patient had a CAT scan of the abdomen that showed diffuse prominence of the ivan of the colon and rectum and colitis was suspected. The patient had also probably a fatty liver infiltration and some bibasilar atelectatic changes and a calcified her [place] the right mid/right lower lobe area. Based on this, ID was consulted, and the patient was started on IV heparin. No significant leukocytosis. No hemodynamic instability at this point. No chest pain. The patient underwent a AN today that showed no evidence of any valvular vegetation. CAT scan of the chest was also done that showed some limited patchy infiltrates in lung bases bilaterally and there are also small effusions. No evidence of any pulmonary embolism. The patient was having some limited mental status change which improved and this morning he seems to be communicating and conversing appropriately. Abdomen is slightly tender. No rebound tenderness or guarding. No acute abdomen. No fever or chills. Lactic acid was elevated at 3.8 and subsequently dropped down to 1.4 and follow-up levels show that the lactic acid is up to 3.8 again. Stool for C. diff is been negative. On 02/17/2017, the patient is doing well. The patient is able to sit up on a chair. Abdomen is less tender. No new blood cultures. He is still on examination Zosyn and vancomycin. He is afebrile for now. He is tolerating diet. No active bowel movements. AN was done and there is no evidence of endocarditis. The patient has no significant leukocytosis on today's evaluation. He is in atrial fibrillation and he is on IV heparin. He is also on an insulin drip for blood sugar control. Renal function stable with a creatinine of 1.2. The subsequent lactic acid level is still pending for now. I was told that earlier he was a bit bronchospastic and wheezy, however on today 's evaluation the patient is moving adequate breath sounds bilaterally without any significant wheezing at this point. Stool for C. diff has been negative. Objective - Vital Signs Vital signs: Vital Signs Temp 98.7 F 02/17/17 12:00 Pulse 101 H 02/17/17 12:00 Resp 20 02/17/17 12:00 BP 129/61 02/17/17 12:00 Pulse Ox 98 02/17/17 12:00 Intake & Output 02/16/17 02/17/17 02/17/17 18:59 06:59 18:59 Intake Total 3060.005 5613.542 1298.587 Output Total 1575 835 305 Balance 147.265 311.542 993.587 Weight 87.6 kg Intake: IV 825 717.5 350.0 Magnesium Sulfate-D5w Pmx 100 200 1 gm In Dextrose/Water 1 100ml.bag @ 100 mls/hr IVPB Q1H [facility] Rx#: [id number] Piperacillin-Tazobactam 3 62.5 50.0 .375 gm In Dextrose/Water 1 50ml.bag @ 12.5 mls/hr IVPB Q8HR [facility] Rx#: [id number] Sodium Chloride 0.9% 1, 825 455 000 ml @ 75 mls/hr IV . [id number] [facility] Rx#:[id number] metroNIDAZOLE-NS PMX 500 100 100 mg In Saline 1 100ml.bag @ 100 mls/hr IVPB Q8HR [facility] Rx#:[id number] Intake, IV Titration 697.265 429.042 448.587 Amount Heparin Sodium,Porcine/ 648.575 384.408 115.592 D5w Pmx 25,000 unit In Dextrose/Water 1 500ml. bag @ 12 UNITS/KG/HR 18. 94 mls/hr IV .Q24H [facility] Rx #:[id number] Insulin Regular 100 unit 48.690 44.634 22.995 In Sodium Chloride 0.9% 100 ml @ Per Protocol IV .Q0M [facility] Rx#:[id number] Sodium Chloride 0.9% 1, 60 000 ml @ 20 mls/hr IV . Q24H [facility] Rx#:[id number] Vancomycin 1,250 mg In 250 Sodium Chloride 0.9% 250 ml @ 125 mls/hr IVPB Q16H [facility] Rx#:[id number] Oral 200 500 Output: Urine 1375 835 305 Stool 200 Other: Voiding Method Indwelling Catheter Indwelling Catheter Indwelling Catheter # Voids 1 - Exam Head exam was generally normal. There was no scleral icterus or corneal arcus. Mucous membranes were moist.Neck was supple and without jugular venous distension, thyromegaly, or carotid bruits. Carotids were easily palpable bilaterally. There was no adenopathy. Lung sounds are diminished in lung bases bilaterally along with some few bibasilar crackles. Sternum stable clean and intact. The cardiac rhythm is irregular. There is a faint grade 2 systolic ejection murmur heard throughout the precordium. Abdomen is soft. There is some mild direct tenderness. No rebound tensile guarding. Bowel sounds are present.Examination of the extremities revealed easily palpable radial, femoral and pedal pulses. There was no cyanosis, clubbing or edema. - Labs CBC & Chem 7: 02/17/17 04:30 02/17/17 04:30 Labs: Abnormal Lab Results - Last 24 Hours (Table) 02/16/17 02/16/17 02/16/17 Range/Units 12:29 13:06 13:56 RBC (4.30-5.90) m/uL Hgb (13.0-17.5) gm/dL Hct (39.0-53.0) % Neutrophils # (1.3-7.7) k/uL Lymphocytes # (1.0-4.8) k/uL APTT (22.0-30.0) sec Potassium (3.5-5.1) mmol/L Chloride (98-107) mmol/L Carbon Dioxide (22-30) mmol/L Glucose (74-99) mg/dL POC Glucose (mg/dL) 170 H 178 H 148 H (75-99) mg/dL Phosphorus (2.5-4.5) mg/dL 02/16/17 02/16/17 02/16/17 Range/Units 15:18 15:36 16:37 RBC (4.30-5.90) m/uL Hgb (13.0-17.5) gm/dL Hct (39.0-53.0) % Neutrophils # (1.3-7.7) k/uL Lymphocytes # (1.0-4.8) k/uL APTT 55.7 H (22.0-30.0) sec Potassium (3.5-5.1) mmol/L Chloride (98-107) mmol/L Carbon Dioxide (22-30) mmol/L Glucose (74-99) mg/dL POC Glucose (mg/dL) 176 H 201 H (75-99) mg/dL Phosphorus (2.5-4.5) mg/dL 02/16/17 02/16/17 02/16/17 Range/Units 17:53 18:56 19:55 RBC (4.30-5.90) m/uL Hgb (13.0-17.5) gm/dL Hct (39.0-53.0) % Neutrophils # (1.3-7.7) k/uL Lymphocytes # (1.0-4.8) k/uL APTT (22.0-30.0) sec Potassium (3.5-5.1) mmol/L Chloride (98-107) mmol/L Carbon Dioxide (22-30) mmol/L Glucose (74-99) mg/dL POC Glucose (mg/dL) 206 H 239 H 209 H (75-99) mg/dL Phosphorus (2.5-4.5) mg/dL 02/16/17 02/16/17 02/16/17 Range/Units 21:11 22:03 23:08 RBC (4.30-5.90) m/uL Hgb (13.0-17.5) gm/dL Hct (39.0-53.0) % Neutrophils # (1.3-7.7) k/uL Lymphocytes # (1.0-4.8) k/uL APTT (22.0-30.0) sec Potassium (3.5-5.1) mmol/L Chloride (98-107) mmol/L Carbon Dioxide (22-30) mmol/L Glucose (74-99) mg/dL POC Glucose (mg/dL) 224 H 186 H 177 H (75-99) mg/dL Phosphorus (2.5-4.5) mg/dL 02/17/17 02/17/17 02/17/17 Range/Units 00:34 01:14 02:03 RBC (4.30-5.90) m/uL Hgb (13.0-17.5) gm/dL Hct (39.0-53.0) % Neutrophils # (1.3-7.7) k/uL Lymphocytes # (1.0-4.8) k/uL APTT (22.0-30.0) sec Potassium (3.5-5.1) mmol/L Chloride (98-107) mmol/L Carbon Dioxide (22-30) mmol/L Glucose (74-99) mg/dL POC Glucose (mg/dL) 119 H 102 H 123 H (75-99) mg/dL Phosphorus (2.5-4.5) mg/dL 02/17/17 02/17/17 02/17/17 Range/Units 03:06 04:07 04:30 RBC 3.59 L (4.30-5.90) m/uL Hgb 9.9 L (13.0-17.5) gm/dL Hct 30.6 L (39.0-53.0) % Neutrophils # 8.1 H (1.3-7.7) k/uL Lymphocytes # 0.9 L (1.0-4.8) k/uL APTT (22.0-30.0) sec Potassium (3.5-5.1) mmol/L Chloride (98-107) mmol/L Carbon Dioxide (22-30) mmol/L Glucose (74-99) mg/dL POC Glucose (mg/dL) 151 H 145 H (75-99) mg/dL Phosphorus (2.5-4.5) mg/dL 02/17/17 02/17/17 02/17/17 Range/Units 04:30 04:30 05:06 RBC (4.30-5.90) m/uL Hgb (13.0-17.5) gm/dL Hct (39.0-53.0) % Neutrophils # (1.3-7.7) k/uL Lymphocytes # (1.0-4.8) k/uL APTT 43.5 H (22.0-30.0) sec Potassium 3.2 L (3.5-5.1) mmol/L Chloride 109 H (98-107) mmol/L Carbon Dioxide 21 L (22-30) mmol/L Glucose 133 H (74-99) mg/dL POC Glucose (mg/dL) 161 H (75-99) mg/dL Phosphorus 2.0 L (2.5-4.5) mg/dL 02/17/17 02/17/17 02/17/17 Range/Units 06:05 07:47 09:01 RBC (4.30-5.90) m/uL Hgb (13.0-17.5) gm/dL Hct (39.0-53.0) % Neutrophils # (1.3-7.7) k/uL Lymphocytes # (1.0-4.8) k/uL APTT (22.0-30.0) sec Potassium (3.5-5.1) mmol/L Chloride (98-107) mmol/L Carbon Dioxide (22-30) mmol/L Glucose (74-99) mg/dL POC Glucose (mg/dL) 141 H 124 H 179 H (75-99) mg/dL Phosphorus (2.5-4.5) mg/dL 02/17/17 02/17/17 02/17/17 Range/Units 10:14 10:57 12:07 RBC (4.30-5.90) m/uL Hgb (13.0-17.5) gm/dL Hct (39.0-53.0) % Neutrophils # (1.3-7.7) k/uL Lymphocytes # (1.0-4.8) k/uL APTT (22.0-30.0) sec Potassium (3.5-5.1) mmol/L Chloride (98-107) mmol/L Carbon Dioxide (22-30) mmol/L Glucose (74-99) mg/dL POC Glucose (mg/dL) 212 H 211 H 183 H (75-99) mg/dL Phosphorus (2.5-4.5) mg/dL Microbiology - Last 24 Hours (Table) 02/16/17 01:20 Stool Culture - Preliminary Stool 02/15/17 15:22 Blood Culture - Preliminary Blood No Growth after 24 hours 02/15/17 13:07 Blood Culture - Preliminary Blood No Growth after 24 hours 02/16/17 00:45 Urine Culture - Preliminary Urine,Catheterized Assessment and Plan Plan: Assessment 1 diffuse colitis with secondary bacteremia and sepsis. Rule out underlying ischemic colitis. Echocardiogram was done and subsequently a AN was performed and there is no evidence of endocarditis. The patient has staph and gram- positive bacillus in the blood. Rule out anaerobic septicemia. Meanwhile, the patient's condition is improving. I'm going to order a follow-up lactic acid level. He is on antibiotics. He is on fluids. No change in mental status. No signs of ongoing septicemia at this point. No significant leukocytosis. Abdominal tenderness is also improving. 2 nausea vomiting and generalized weakness likely secondary to sepsis 3 coronary artery disease with previous bypass surgery 4 mitral valve replacement, prosthetic valve 5 diabetes mellitus, 6 CVA, history of 7 hyperlipidemia 8 AICD placement 9 mild lactic acidosis 10 atrial fibrillation Plan Continue current antibiotic coverage. Recheck a lactic acid level. Continue IV heparin. Continue IV insulin. Continue IV Zosyn and vancomycin. ID follow- up. Gen. surgery follow-up. Monitor respiratory status. We'll continue to follow.
[2017-02-17 13:07] LABS: Anion Gap 10 mmol/L; Blood Urea Nitrogen 14 mg/dL (9-20); Calcium 8.7 mg/dL (8.4-10.2); Carbon Dioxide 18 mmol/L (22-30); Chloride 109 mmol/L (98-107); Glucose 157 mg/dL (74-99); Non-African American GFR(MDRD) 58 (>60 ml/min/1.73 sqM); Potassium 3.5 mmol/L (3.5-5.1); Sodium 137 mmol/L (137-145)
[2017-02-17] MEDS ORDERED: Potassium Replacement Protocol 1 EACH MISC MISCELLANE PRN (13:14)
--- NOTE | 2017-02-17 13:36 | PN ---
DATE OF SERVICE: 02/16/2017 INTERVAL HISTORY: Mr. Cao is a 77-year-old patient with significant past medical history of coronary artery disease, history of previous bypass surgery, mitral valve repair with prosthetic valve, along with history of pacemaker defibrillator insertion, with severe left sided ( ) admitted to the hospital because of generalized weakness and lethargy. Patient was also having some epigastric pain, was nauseous and had episode of emesis along with loose bowel movement. The patient was initially on the [facility], but as the patient was more confused she has been transferred to the ICU. Patient had blood cultures come back positive for staph hominis and second blood culture was positive for gram positive bacilli and ( ). Patient did have CT scan of the abdomen showing ( ) significant for colitis. As the patient has a history of mitral valve repair with prior prosthetic valve he had a AN that showed no evidence of any vegetation. A CT scan of the chest was showing limited patchy infiltrate and the lung bases bilaterally with small effusions but no evidence of PE. Patient was hemodynamically stable throughout. He has been started on IV antibiotics in the form of vancomycin, Zosyn, and Flagyl per the ID Service. Currently the patient ( ). Complains of ( ), mild epigastric tenderness. REVIEW OF SYSTEMS: CONSTITUTIONAL: Denies having fever, chills or rigors. CARDIAC: No chest pain or palpitations. RESPIRATORY: No cough. No difficulty in breathing. GI: Slight abdominal pain. He had one episode of emesis and one episode of diarrhea. : No dysuria or hematuria. Patient's medications have been reviewed. He is on Tylenol, DuoNeb, Atenolol, heparin IV. Lisinopril, metoprolol, which are on hold. Flagyl, Zofran Protonix, Zosyn, Risperdal and vancomycin. Patient's vitals temperature 97.7, heart rate 83, respiratory rate 25, blood pressure 129/67, saturating at 99% on 2-L of oxygen. GENERAL: Patient does not appear to be in any acute distress. HEAD: Atraumatic, normocephalic. EYES: Pupils round and reactive to light. NECK: No JVD. No thyromegaly. CARDIOVASCULAR: S1 and S2 heard. LUNGS: Bilateral breath sounds are positive. No wheezes or crackles. Diminished at the lower lung bases. Patient has an ejection systolic murmur. ABDOMEN: Soft, mild tenderness in the epigastric region. No guarding or rigidity. Bowel sounds present. EXTREMITIES: No edema. No cyanosis. Positive pulses. DATA ANALYST: Alert, oriented x3. No focal neurological deficits. SKIN: No rash. MUSCULOSKELETAL: No joint swelling or deformity. PSYCHIATRIC: Appropriate mood and affect. Patient's labs: White count of 4.3, hemoglobin is 9.5, platelets of 128, sodium 133, potassium 4.3, chloride 104, bicarbonate 16, BUN 15, creatinine 1.28. Clostridium difficile negative x2. ASSESSMENT AND PLAN: 1. Nausea, vomiting with an episode of diarrhea, most likely secondary to gastroenteritis. Patient has been started on IV vancomycin, Zosyn and Flagyl. ID, Dr. Boo, on board following the patient. Clostridium difficile has been negative x1. Patient's symptoms are improving significantly so it can be viral gastroenteritis. 2. History of coronary artery disease, status post coronary artery bypass graft. 3. Mitral valve replacement with prosthetic valve. 4. Diabetes mellitus. 5. History of cerebrovascular accident with left-sided weakness. 6. Type 2 diabetes mellitus. 7. Hypertension. 8. Status post AICD placement. PLAN: Patient's blood cultures have been positive for staff with ( ) so there might be a contamination. Repeat blood cultures from 02/15 negative for the past 24 hours. Patient did not require any pressor support. Will continue with the current medication regimen. Further recommendations to follow depending on the progress of the patient.
[2017-02-17 13:59] LABS: Glucose,Whole Blood 151 mg/dL (75-99)
[2017-02-17] MEDS ORDERED: POTASSIUM CHLORIDE ER 20 MEQ TAB.ER PO SCH (14:00)
[2017-02-17 15:56] LABS: Glucose,Whole Blood 94 mg/dL (75-99)
[2017-02-17 17:05] LABS: Glucose,Whole Blood 122 mg/dL (75-99)
[2017-02-17] MEDS: INSULIN LISPRO (humaLOG) 300 UNIT/3 ML VIAL SQ SCH ×2 (17:05→20:37)
--- NOTE | 2017-02-17 17:37 | PN ---
This gentleman underwent endoscopy by Dr. Garcia yesterday that did not reveal any vegetations. He is clinically doing much better today. Remains in atrial fibrillation with intermittent paced rhythm. S1 and S2 heard normally. Ejection systolic murmur is audible. Lungs are clear. Abdomen and lower extremity exam unchanged. Plan is to continue current medications. Increase activity, and he can be moved out of telemetry.
--- NOTE | 2017-02-17 19:25 | PN ---
DATE OF SERVICE: 02/17/2017 INTERVAL HISTORY: Mr. Cao is a 77-year-old male with a significant past medical history of coronary artery disease, previous history of bypass surgery with mitral valve repair, prosthetic valve along with history of pacemaker defibrillator insertion with CVA with left-sided weakness, admitted to the hospital for generalized weakness and lethargy. The patient was having some epigastric pain and nausea and threw up once along with one bowel movement. The patient was initially on [facility] but as he was confused. He was transferred to the ICU. The patient had blood cultures positive for Staph ( ) and a second blood cultures are positive for gram-positive bacilli, ( ) which might be contaminants so repeat blood cultures has been taken from yesterday, which did not show any growth as of now. Patient did have a CT scan of the abdomen showing significant colitis. Patient also had a AN done, which was showing no evidence of any vegetation. CT scan of the chest was showing limited patchy infiltrates on the lung bases bilaterally with small effusion but was negative for any PE. Patient was started on antibiotics in the form of vancomycin and Zosyn, Flagyl and being monitored in ICU setting. Currently, the patient is up and has been started on a full liquid diet that he has been tolerating since this morning. REVIEW OF SYSTEMS: CONSTITUTIONAL: The patient denies having any fevers, chills, or rigors. CARDIAC: No chest pain or palpitations. RESPIRATORY: No cough. No difficulty in breathing. GI: Patient still has some epigastric discomfort, no more nausea or emesis. : No dysuria or hematuria. Patient's medications have been reviewed. He is on: 1. Tylenol. 2. Albuterol. 3. Aggrenox. 4. IV heparin. 5. Sliding scale of insulin. 6. Zestril. 7. Lopressor. 8. Flagyl. 9. Vancomycin. 10. Zosyn. 11. Protonix. 12. Zofran. 13. Risperdal. On examination, patient's vitals: Temperature 98.7, heart rate 90 to 100, respiratory rate 20, blood pressure 129/61, saturating at 98% on 3 liters of nasal cannula. GENERAL EXAMINATION: Patient does not appear to be in acute distress. HEAD: Atraumatic, nontraumatic. EYES: Pupils, round, and reactive to light. No pallor. No icterus. NECK: No JVD. No thyromegaly. CARDIOVASCULAR: S1, S2 heard. Positive for mejia systolic murmur. LUNGS: Positive breath sounds bilaterally, diminished at the lower lung bases. ABDOMEN: Soft, mild epigastric tenderness. No guarding or rigidity. Bowel sounds are present. EXTREMITIES: No edema. No cyanosis. Peripheral pulses are positive. CENTRAL NERVOUS SYSTEM: Alert and oriented times three. No focal neurological deficits. SKIN: No rash. ( ). MUSCULOSKELETAL: No joint swelling. ( ). PSYCHIATRY: Appropriate mood and affect. Patient's labs: White count of 9.6, hemoglobin is 9.9, platelets of 174. Sodium is 137, potassium is 3.5, chloride 109, bicarb 18, BUN 14, creatinine 1.20. UA within normal limits. C. dif is negative. ASSESSMENT AND PLAN: 1. Nausea, vomiting and an episode of diarrhea, most likely gastroenteritis, patient was adequately started on vancomycin, Zosyn and Flagyl. ( ) on board and following the patient. Clostridium difficile has been negative x2. Patient's symptoms have been improved significantly so it might as well be viral gastroenteritis, unclear at this point of time. Patient does not appear to be septic. 2. History of coronary artery disease, status post coronary artery bypass graft, mitral valve replacement with prosthetic valve. 3. Diabetes mellitus Type 2. 4. History of cerebrovascular accident with left-sided weakness. 5. Type 2 diabetes mellitus. 6. Hypertension. 7. Status post AICD placement. PLAN: Current plan is the patient's blood cultures have been positive for Staph ( ) and bacillus, not anthrax so it might be a contaminant. Repeat blood cultures from 02/15 have been negative for the past 48 hours. Patient did not require any pressor support, but he is on antibiotics in the form of Zosyn and Flagyl. So we will continue the current regimen and patient started to eat, so we will discontinue the insulin drip and start him on a sliding scale of insulin. Metformin is on hold in view of his recent CT scan that he got with contrast. We will continue with the rest of his medication regimen and further recommendations to follow depending on the progress of the patient.
[2017-02-17] MEDS: risperiDONE 0.25 MG TAB PO SCH (20:37)
[2017-02-17 20:39] LABS: Glucose,Whole Blood 226 mg/dL (75-99)
[2017-02-18 05:05] LABS: Basophils % (A) 0 %; CH 27.1; CHCM 31.2; Eosinophils # (A) 0.1 k/uL (0-0.7); Eosinophils % (A) 2 %; HCT 29.7 % (39.0-53.0); HDW 2.86; HGB 9.5 gm/dL (13.0-17.5); Hypochromasia Slight; Luc # (Auto) 0.21; Luc % (Auto) 4; Lymphocytes % (A) 17 %; MCV 87.3 fL (80.0-100.0); Mean Platelet Volume 9.4; Monocytes # (A) 0.4 k/uL (0-1.0); Monocytes % (A) 6 %; Neutrophils # (A) 4.3 k/uL (1.3-7.7); Neutrophils % (A) 71 %; RDW 15.6 % (11.5-15.5); WBC (Perox) 5.81
[2017-02-18 05:19] LABS: Anion Gap 10 mmol/L; Blood Urea Nitrogen 14 mg/dL (9-20); Calcium 8.8 mg/dL (8.4-10.2); Carbon Dioxide 18 mmol/L (22-30); Chloride 108 mmol/L (98-107); Glucose 207 mg/dL (74-99); Magnesium 1.9 mg/dL (1.6-2.3); Non-African American GFR(MDRD) 58 (>60 ml/min/1.73 sqM); Phosphorous 2.9 mg/dL (2.5-4.5); Potassium 4.1 mmol/L (3.5-5.1); Sodium 136 mmol/L (137-145)
[2017-02-18] MEDS: HEPARIN SODIUM,PORCINE 5,000 UNIT/ML 1 ML VIAL IV PRN (06:07)
[2017-02-18] MEDS: HEPARIN SODIUM,PORCINE/D5W PMX 25,000 UNIT in DEXTROSE/WATER 1 500ML.BAG IV SCH (06:07)
[2017-02-18 07:18] LABS: Glucose,Whole Blood 267 mg/dL (75-99)
[2017-02-18] MEDS: IPRATROPIUM-ALBUTEROL 3 ML NEB INHALATION SCH ×4 (07:36→19:38)
[2017-02-18] MEDS: INSULIN LISPRO (humaLOG) 300 UNIT/3 ML VIAL SQ SCH ×2 (07:52→12:35)
[2017-02-18] MEDS: PANTOPRAZOLE 40 MG/10 ML VIAL IV SCH (07:56)
[2017-02-18] MEDS: metroNIDAZOLE-NS PMX 500 MG in SALINE 1 100ML.BAG IVPB SCH ×2 (08:00→15:47)
[2017-02-18] MEDS: LISINOPRIL 20 MG TAB PO SCH (08:01)
[2017-02-18] MEDS: METOPROLOL TARTRATE 25 MG TAB PO SCH ×2 (08:02→22:35)
[2017-02-18] MEDS: SODIUM CHLORIDE 0.9% 1,000 ML IV SCH (08:02)
--- NOTE | 2017-02-18 08:04 | XR ---
EXAMINATION TYPE: XR chest 1V DATE OF EXAM: 02/18/2017 COMPARISON: Prior chest x-ray 02/17/2017 HISTORY: Pneumonia TECHNIQUE: Single frontal view of the chest is obtained. FINDINGS: Patient is post median sternotomy. The heart is enlarged. Intracardiac defibrillator leads are again noted. No evident pneumothorax or pleural effusion. Interstitium is increased. Nodular den sity in the right midlung is again noted. IMPRESSION: Similar to prior exam. Correlate to exclude interstitial edema. Old granulomatous diseas e. Cardiomegaly.
[2017-02-18] MEDS: MAGNESIUM SULFATE-D5W PMX 1 GM in DEXTROSE/WATER 1 100ML.BAG IVPB SCH ×2 (08:10→09:26)
[2017-02-18] MEDS: PIPERACILLIN-TAZOBACTAM 3.375 GM in DEXTROSE/WATER 1 50ML.BAG IVPB SCH ×2 (09:29→18:18)
[2017-02-18] MEDS: methylPREDNISolone SOD SUCCI 40 MG/ML 1 ML VIAL IV SCH ×2 (10:22→15:45)
[2017-02-18 11:59] LABS: Glucose,Whole Blood 251 mg/dL (75-99)
--- NOTE | 2017-02-18 12:18 | PN ---
DATE OF SERVICE: 02/17/2017 Reason for follow-up is possible ischemic colitis and aspiration pneumonitis. INTERVAL HISTORY: The patient is afebrile. He is more awake, alert. He is breathing comfortably. Denies significant chest pain. Did have some cough, not brining up sputum. Abdominal pain has been improving. No further nausea, vomiting or any diarrhea. On examination, blood pressure 131/54 with a pulse of 97. Temperature 98. He is 94% on 3 liters nasal cannula. General description is an elderly male, lying in bed in no distress. RESPIRATORY SYSTEM: Unlabored breathing. Some coarse breath sounds at bases bilaterally. HEART: S1, S2. Regular rate and rhythm. ABDOMEN: Soft. No tenderness. LABS: Hemoglobin 9.9, white count 9.6. BUN of 14, creatinine 1.20. Blood culture repeat so far negative. Stool cultures are pending. DIAGNOSTIC IMPRESSION AND PLAN: Patient admitted to hospital with acute nausea, vomiting, abdominal pain and diarrhea with evidence of colitis seen on CT scan. Question possible ischemic colitis versus infectious. So far stool culture has been negative and responding to Zosyn which should be continued switching him to oral once his oral intake has improved. Continue supportive care.
[2017-02-18] MEDS: VANCOMYCIN 1,250 MG in SODIUM CHLORIDE 0.9% 250 ML IVPB SCH (13:42)
--- NOTE | 2017-02-18 15:00 | P.PN ---
Subjective Principal diagnosis: acute colitis and sepsis 77-year-old male patient with an extensive cardiovascular history involving history of coronary artery disease, previous bypass surgery and previous mitral valve repair with a bioprosthetic valve, along with history of pacer/ defibrillator insertion, and history of previous CVA with left-sided weakness, presented to the hospital because of generalized weakness and lethargy. Subsequently after coming the hospital the patient started becoming nauseous and started having episodes of emesis and loose bowel movements. Blood cultures came back positive for staph hominis and a second blood culture came back positive for gram-positive bacillus, nonanthrax. The patient had a CAT scan of the abdomen that showed diffuse prominence of the ivan of the colon and rectum and colitis was suspected. The patient had also probably a fatty liver infiltration and some bibasilar atelectatic changes and a calcified her [place] the right mid/right lower lobe area. Based on this, ID was consulted, and the patient was started on IV heparin. No significant leukocytosis. No hemodynamic instability at this point. No chest pain. The patient underwent a AN today that showed no evidence of any valvular vegetation. CAT scan of the chest was also done that showed some limited patchy infiltrates in lung bases bilaterally and there are also small effusions. No evidence of any pulmonary embolism. The patient was having some limited mental status change which improved and this morning he seems to be communicating and conversing appropriately. Abdomen is slightly tender. No rebound tenderness or guarding. No acute abdomen. No fever or chills. Lactic acid was elevated at 3.8 and subsequently dropped down to 1.4 and follow-up levels show that the lactic acid is up to 3.8 again. Stool for C. diff is been negative. On 02/17/2017, the patient is doing well. The patient is able to sit up on a chair. Abdomen is less tender. No new blood cultures. He is still on examination Zosyn and vancomycin. He is afebrile for now. He is tolerating diet. No active bowel movements. AN was done and there is no evidence of endocarditis. The patient has no significant leukocytosis on today's evaluation. He is in atrial fibrillation and he is on IV heparin. He is also on an insulin drip for blood sugar control. Renal function stable with a creatinine of 1.2. The subsequent lactic acid level is still pending for now. I was told that earlier he was a bit bronchospastic and wheezy, however on today 's evaluation the patient is moving adequate breath sounds bilaterally without any significant wheezing at this point. Stool for C. diff has been negative. On 02/18/2017, patient seems to be doing better than expected, denies any specific complaints, abdomen is definitely less tender. Patient remains on Zosyn and vancomycin, his AN showed no evidence of endocarditis, labsshowed improvement in his WBC count down to 6.0 hemoglobin is 9.5 electrolytes and renal profile are improved. Bicarb remains low at 18.blood cultures from 02/13 showed staph hominis.patient tested negative for C. difficile.lactic acid is down to 1.8. It was 3.9 2days ago. Objective - Vital Signs Vital signs: Vital Signs Temp 97.6 F 02/18/17 12:00 Pulse 79 02/18/17 12:00 Resp 20 02/18/17 12:00 BP 133/75 02/18/17 12:00 Pulse Ox 98 02/18/17 12:00 Intake & Output 02/17/17 02/18/17 02/18/17 18:59 06:59 18:59 Intake Total 8844.590 1170.026 237.5 Output Total 1420 1150 900 Balance 297.488 18.026 -662.5 Weight 85.3 kg Intake: IV 387.5 175.0 137.5 Magnesium Sulfate-D5w Pmx 200 1 gm In Dextrose/Water 1 100ml.bag @ 100 mls/hr IVPB Q1H [facility] Rx#: [id number] Piperacillin-Tazobactam 3 87.5 75.0 37.5 .375 gm In Dextrose/Water 1 50ml.bag @ 12.5 mls/hr IVPB Q8HR [facility] Rx#: [id number] metroNIDAZOLE-NS PMX 500 100 100 100 mg In Saline 1 100ml.bag @ 100 mls/hr IVPB Q8HR [facility] Rx#:[id number] Intake, IV Titration 579.988 993.026 100 Amount Heparin Sodium,Porcine/ 147.566 468.026 D5w Pmx 25,000 unit In Dextrose/Water 1 500ml. bag @ 12 UNITS/KG/HR 18. 94 mls/hr IV .Q24H [facility] Rx #:[id number] Insulin Regular 100 unit 32.422 In Sodium Chloride 0.9% 100 ml @ Per Protocol IV .Q0M [facility] Rx#:[id number] Sodium Chloride 0.9% 1, 150 200 100 000 ml @ 20 mls/hr IV . Q24H [facility] Rx#:[id number] Sodium Chloride 0.9% 1, 75 000 ml @ 75 mls/hr IV . [id number] [facility] Rx#:[id number] Vancomycin 1,250 mg In 250 250 Sodium Chloride 0.9% 250 ml @ 125 mls/hr IVPB Q16H [facility] Rx#:[id number] Oral 750 Output: Urine 1420 950 900 Stool 200 Other: Voiding Method Indwelling Catheter Indwelling Catheter Indwelling Catheter # Bowel Movements 1 1 1 - Exam Physical Exam: Revealed a 77-year-old in no distress HEENT:[Neck is supple.] [No neck masses.] [No thyromegaly.] [No JVD.] Chest: [diminished breath sounds at the bases no crackles or rhonchi or wheezes] Cardiac Exam: [Normal S1 and S2, no S3 gallop, no murmur.] Abdomen: [Soft, nontender, no megaly, no rebound, no guarding, normal bowel sounds.] Extremities: [No clubbing, no edema, no cyanosis.] Neurological Exam: [No focal neurologic deficit.] - Labs CBC & Chem 7: 02/18/17 04:13 02/18/17 04:13 Labs: Abnormal Lab Results - Last 24 Hours (Table) 02/17/17 02/17/17 02/17/17 Range/Units 17:03 19:52 20:36 RBC (4.30-5.90) m/uL Hgb (13.0-17.5) gm/dL Hct (39.0-53.0) % RDW (11.5-15.5) % APTT 53.7 H (22.0-30.0) sec Sodium (137-145) mmol/L Chloride (98-107) mmol/L Carbon Dioxide (22-30) mmol/L Glucose (74-99) mg/dL POC Glucose (mg/dL) 122 H 226 H (75-99) mg/dL 02/18/17 02/18/17 02/18/17 Range/Units 04:13 04:13 04:13 RBC 3.40 L (4.30-5.90) m/uL Hgb 9.5 L (13.0-17.5) gm/dL Hct 29.7 L (39.0-53.0) % RDW 15.6 H (11.5-15.5) % APTT 43.6 H (22.0-30.0) sec Sodium 136 L (137-145) mmol/L Chloride 108 H (98-107) mmol/L Carbon Dioxide 18 L (22-30) mmol/L Glucose 207 H (74-99) mg/dL POC Glucose (mg/dL) (75-99) mg/dL 02/18/17 02/18/17 Range/Units 07:17 11:58 RBC (4.30-5.90) m/uL Hgb (13.0-17.5) gm/dL Hct (39.0-53.0) % RDW (11.5-15.5) % APTT (22.0-30.0) sec Sodium (137-145) mmol/L Chloride (98-107) mmol/L Carbon Dioxide (22-30) mmol/L Glucose (74-99) mg/dL POC Glucose (mg/dL) 267 H 251 H (75-99) mg/dL Microbiology - Last 24 Hours (Table) 02/15/17 15:22 Blood Culture - Preliminary Blood No Growth after 48 hours 02/15/17 13:07 Blood Culture - Preliminary Blood No Growth after 48 hours 02/16/17 00:45 Urine Culture - Final Urine,Catheterized Assessment and Plan Plan: 1 diffuse colitis with secondary bacteremia and sepsis. Rule out underlying ischemic colitis. Echocardiogram was done and subsequently a AN was performed and there is no evidence of endocarditis. The patient has staph hominis on the blood. Meanwhile, the patient's condition is improving. He is on antibiotics. He is on fluids. No change in mental status. No signs of ongoing septicemia at this point. No significant leukocytosis. Abdominal tenderness is also improving. 2 nausea vomiting and generalized weakness likely secondary to sepsis 3 coronary artery disease with previous bypass surgery 4 mitral valve replacement, prosthetic valve 5 diabetes mellitus, 6 CVA, history of 7 hyperlipidemia 8 AICD placement 9 mild lactic acidosis 10 atrial fibrillation Recommendation: Continue antibiotics, if the patient remains hemodynamically stable, consider transferring the patient out of the ICU to a monitored bed on selective. We'll continue to follow closely. Time with Patient: Less than 30
--- NOTE | 2017-02-18 16:41 | PN ---
Mr. Cao is a 77-year-old male with a history of coronary artery bypass grafting, mitral valve replacement, history of arrhythmia and pacemaker implantation who presented with symptoms of progressive fatigue, had a febrile episode, as well as evidence of sepsis. He has a history of ICD implant, and on presentation he was in atrial fibrillation; was not documented in the past. He is feeling better today, quite anxious to get on the regular floor and increase his activity. His breathing is stable. He denies any chest pain. He denies any dizziness or palpitation. He denies any nausea. He is hemodynamically stable. His blood pressure is stable. He continues to be on: 1. IV heparin. 2. Lisinopril 40 mg daily. 3. Metoprolol tartrate 75 mg twice a day. 4. Protonix IV. 5. Antibiotics. PHYSICAL EXAMINATION: Blood pressure running in the 120s and 140s with a heart rate in the 80s. LUNGS: Clear. HEART: Irregularly irregular. S1, S2 with systolic murmur. No diastolic murmur. ABDOMEN: Soft, nontender. Positive bowel sounds. No organomegaly. EXTREMITIES: No edema. Lab data revealed BUN and creatinine of 14 and 1.2. Potassium 4.1, hemoglobin of 9.5. His magnesium is 1.9. He continues to be on IV heparin. IMPRESSION: 1. Sepsis, source unclear; probable ischemic colitis. 2. Atrial fibrillation; appears to be recent. 3. Status post coronary artery bypass grafting. 4. Status post mitral valve replacement. 5. History of ICD implant. 6. Ischemic cardiomyopathy. RECOMMENDATIONS: From the cardiac standpoint, I will stop the IV heparin. I will put him on Eliquis. Will stop the dipyridamole and just keep him on aspirin. I would expect the patient to be transferred to the regular floor today. His level of activity increased and, depending on his progress, further recommendation will be made.
[2017-02-18 17:29] LABS: Glucose,Whole Blood 399 mg/dL (75-99)
[2017-02-18] MEDS ORDERED: INSULIN REGULAR BOLUS (FROM DRIP BAG) IV PRN (17:34)
[2017-02-18 18:05] LABS: Glucose,Whole Blood 392 mg/dL (75-99)
[2017-02-18] MEDS: INSULIN REGULAR 100 UNIT in SODIUM CHLORIDE 0.9% 100 ML IV SCH (18:10)
--- NOTE | 2017-02-18 18:35 | PN ---
DATE OF SERVICE: 02/18/2017 INTERVAL HISTORY: Mr. Cao is a 77-year-old male with a significant past medical history of CAD, previous history of bypass surgery, mitral valve repair, prosthetic valve along with history of pacemaker, defibrillator insertion, CVA with left-sided weakness, admitted to the hospital for generalized weakness and lethargy. Patient did have some epigastric pain, nausea and vomiting; threw up once. He was initially in the selective specialty but was more confused and was hypotensive and eventually was transferred to the ICU. Patient's blood cultures have been positive for Staph hominis and Gram-positive bacilli, not Anthracis, which were ( ) to be contaminants, and so repeat blood cultures were taken and showing no growth. Patient did have a CT scan of the abdomen showing significant colitis. He also had a AN which showed no evidence of any vegetation. CT scan of the chest showing limited patchy infiltrates of the lungs bilaterally with small effusions but negative for any PE. Patient was eventually started on empiric antibiotics in the form of vancomycin, Zosyn, Flagyl. He is currently being monitored in an ICU setting. Patient's diet has been advanced slowly and he is tolerating a regular diet currently. REVIEW OF SYSTEMS: CONSTITUTIONAL: Patient denies having any fever, rigor or chills. CARDIAC: No chest pain. No palpitations. GI: Some epigastric discomfort. No nausea or vomiting. RESPIRATORY: No cough. No difficulty in breathing. : No dysuria or hematuria. Patient's medications have been reviewed. On examination, patient's vital signs are temperature 97.6, heart rate 79, respiratory rate 20, blood pressure 133/75. Saturating at 98% on 3 L of nasal cannula. GENERAL EXAMINATION: Patient does not appear to be in any acute distress. HEAD: Atraumatic, normocephalic. EYES: Pupils round and reactive to light. No pallor. No icterus. NECK: No JVD. No thyromegaly. CARDIOVASCULAR: S1, S2 heard. Positive for pansystolic murmur. LUNGS: Positive breath sounds bilaterally. Diminished at the lower lung bases. ABDOMEN: Soft. Mild epigastric tenderness. No guarding or rigidity. EXTREMITIES: No edema. No cyanosis. Peripheral pulses positive. PLATFORM ENGINEER: Alert, awake, oriented x3. No focal neurological deficits. SKIN: No rash. MUSCULOSKELETAL: No joint swelling or deformity. PSYCHIATRIC: Appropriate mood and affect. PATIENT'S LABS: White count of 6, hemoglobin 9.5, platelets of 181. Sodium is 136, potassium 4.1, chloride 108, bicarb 18. BUN 10, creatinine 1.20. ASSESSMENT AND PLAN: 1. Nausea, vomiting and an episode of diarrhea, most likely gastroenteritis. Patient was empirically started on vancomycin, Zosyn and Flagyl. Infectious Disease, Dr. Boo, on board and following the patient. C difficile has been negative x2. Patient's symptoms have improved significantly. Patient does not appear to be septic. It might as well be a viral gastroenteritis. 2. History of coronary artery disease, status post coronary artery bypass graft, mitral valve replacement with prosthetic valve. 3. Type 2 diabetes mellitus. 4. History of cerebrovascular accident with left-sided weakness ( ) 5. Hypertension. 6. Status post automatic implantable cardioverter defibrillator placement. PLAN: The patient's repeat blood cultures have been negative so far. Patient is improving significantly. He will be transferred out of the ICU today. He is still on Zosyn, vancomycin and Flagyl. As the patient tries to eat, his blood sugars have been running high, so we will start him on 10 units of Lantus and continue with sliding scale of insulin. Will continue the rest of his medication regimen. Further recommendations to follow depending on the progress of the patient.
[2017-02-18 19:07] LABS: Glucose,Whole Blood 333 mg/dL (75-99)
[2017-02-18 20:28] LABS: Glucose,Whole Blood 262 mg/dL (75-99)
[2017-02-18] MEDS ORDERED: INSULIN GLARGINE 100 UNIT/ML 10 ML VIAL SQ SCH (21:00)
[2017-02-18 21:06] LABS: Glucose,Whole Blood 251 mg/dL (75-99)
[2017-02-18 21:58] LABS: Glucose,Whole Blood 262 mg/dL (75-99)
[2017-02-18] MEDS: risperiDONE 0.25 MG TAB PO SCH (22:35)
[2017-02-18] MEDS: APIXABAN 5 MG TAB PO SCH (22:35)
--- NOTE | 2017-02-18 22:35 | PN ---
DATE OF SERVICE: 02/18/2017 Reason for follow-up is possible ischemic colitis ( ) pneumonitis. INTERVAL HISTORY: The patient is afebrile. He has been breathing comfortably. Denies significant chest pain or cough. Still complains of pain in the right ( ) abdominal area. No nausea or vomiting. No diarrhea. On examination, blood pressure is 111/56 with a pulse of 81, temperature is 97.6. He is 100% on 3 liters nasal cannula. General description is an elderly male lying in bed in no distress. RESPIRATORY SYSTEM: Unlabored breathing. Clear to auscultation anteriorly. HEART: S1, S2. Regular rate and rhythm. ABDOMEN: Soft. No tenderness. LABS: Hemoglobin 9.5, white count 6.20, ( ) blood cultures have been negative so far. DIAGNOSTIC IMPRESSION AND PLAN: Patient with admitted to hospital with sepsis. Source is likely abdominal with question of possible ischemic colitis and possible aspiration pneumonia. The patient is currently covered with Zosyn, Flagyl. As no gram-positive has been grown, we will discontinue his vancomycin. Continue supportive care.
[2017-02-18 22:37] LABS: Glucose,Whole Blood 242 mg/dL (75-99)
[2017-02-18 23:03] LABS: Glucose,Whole Blood 256 mg/dL (75-99)
[2017-02-18 23:14] LABS: Hemoglobin A1C 6.3 % (4.2-6.1)
[2017-02-19] MEDS: methylPREDNISolone SOD SUCCI 40 MG/ML 1 ML VIAL IV SCH ×3 (00:05→17:33)
[2017-02-19] MEDS: metroNIDAZOLE-NS PMX 500 MG in SALINE 1 100ML.BAG IVPB SCH ×3 (00:05→17:33)
[2017-02-19 00:10] LABS: Glucose,Whole Blood 220 mg/dL (75-99)
[2017-02-19 02:04] LABS: Glucose,Whole Blood 230 mg/dL (75-99)
[2017-02-19] MEDS: PIPERACILLIN-TAZOBACTAM 3.375 GM in DEXTROSE/WATER 1 50ML.BAG IVPB SCH ×3 (02:25→18:43)
[2017-02-19 04:02] LABS: Glucose,Whole Blood 206 mg/dL (75-99)
[2017-02-19 06:11] LABS: Glucose,Whole Blood 186 mg/dL (75-99)
[2017-02-19] MEDS: VANCOMYCIN 1,250 MG in SODIUM CHLORIDE 0.9% 250 ML IVPB SCH (06:26)
[2017-02-19] MEDS: INSULIN REGULAR 100 UNIT in SODIUM CHLORIDE 0.9% 100 ML IV SCH (06:27)
[2017-02-19] MEDS: PANTOPRAZOLE 40 MG TABLET PO SCH (06:27)
[2017-02-19 06:46] LABS: Basophils % (A) 0 %; CH 26.9; CHCM 30.3; Eosinophils % (A) 0 %; HCT 30.4 % (39.0-53.0); HDW 2.77; HGB 9.1 gm/dL (13.0-17.5); Hypochromasia Marked; Luc # (Auto) 0.12; Luc % (Auto) 2; Lymphocytes # (A) 0.5 k/uL (1.0-4.8); Lymphocytes % (A) 7 %; MCH 26.9 pg (25.0-35.0); MCHC 30.1 g/dL (31.0-37.0); MCV 89.3 fL (80.0-100.0); Mean Platelet Volume 8.8; Monocytes # (A) 0.3 k/uL (0-1.0); Monocytes % (A) 4 %; Neutrophils # (A) 6.3 k/uL (1.3-7.7); Neutrophils % (A) 88 %; RDW 15.6 % (11.5-15.5); WBC 7.2 k/uL (3.8-10.6); WBC (Perox) 6.67
[2017-02-19 06:56] LABS: Anion Gap 12 mmol/L; Blood Urea Nitrogen 22 mg/dL (9-20); Calcium 9.3 mg/dL (8.4-10.2); Carbon Dioxide 20 mmol/L (22-30); Chloride 109 mmol/L (98-107); Glucose 166 mg/dL (74-99); Magnesium 2.1 mg/dL (1.6-2.3); Non-African American GFR(MDRD) >60 (>60 ml/min/1.73 sqM); Phosphorous 3.6 mg/dL (2.5-4.5); Potassium 4.2 mmol/L (3.5-5.1); Sodium 141 mmol/L (137-145)
[2017-02-19] MEDS ORDERED: Potassium Replacement Protocol 1 EACH MISC MISCELLANE PRN (07:25)
[2017-02-19] MEDS: IPRATROPIUM-ALBUTEROL 3 ML NEB INHALATION SCH ×4 (07:58→19:31)
[2017-02-19] MEDS ORDERED: POTASSIUM CHLORIDE ER 20 MEQ TAB.ER PO SCH (08:00)
--- NOTE | 2017-02-19 08:00 | XR ---
EXAMINATION TYPE: XR chest 1V DATE OF EXAM: 02/19/2017 COMPARISON: 02/18/2017 HISTORY: Pneumonia TECHNIQUE: Single frontal view of the chest is obtained. FINDINGS: Postsurgical change and cardiac device are stable. Prehire interstitial changes are noted. Vague nodularity right upper lobe. Prominence of the right hilum stable. Tiny effusion suspected. No pneumothorax. IMPRESSION: 1. Correlate for interstitial lung disease or venous congestion. 2. Stable right upper lobe pulmonary nodule.
[2017-02-19 08:10] LABS: Glucose,Whole Blood 170 mg/dL (75-99)
[2017-02-19] MEDS: ASPIRIN 81 MG CHEW PO SCH (08:13)
[2017-02-19] MEDS: APIXABAN 5 MG TAB PO SCH ×2 (08:13→21:32)
[2017-02-19] MEDS: LISINOPRIL 20 MG TAB PO SCH (08:13)
[2017-02-19] MEDS: METOPROLOL TARTRATE 25 MG TAB PO SCH ×2 (08:13→21:32)
[2017-02-19 10:15] LABS: Glucose,Whole Blood 271 mg/dL (75-99)
[2017-02-19] MEDS: SODIUM CHLORIDE 0.9% 1,000 ML IV SCH (11:13)
[2017-02-19] MEDS ORDERED: FUROSEMIDE 10 MG/ML 4 ML VIAL IV STA (11:35)
--- NOTE | 2017-02-19 11:36 | P.PN ---
Subjective Principal diagnosis: Acute colitis and sepsis 77-year-old male patient with an extensive cardiovascular history involving history of coronary artery disease, previous bypass surgery and previous mitral valve repair with a bioprosthetic valve, along with history of pacer/ defibrillator insertion, and history of previous CVA with left-sided weakness, presented to the hospital because of generalized weakness and lethargy. Subsequently after coming the hospital the patient started becoming nauseous and started having episodes of emesis and loose bowel movements. Blood cultures came back positive for staph hominis and a second blood culture came back positive for gram-positive bacillus, nonanthrax. The patient had a CAT scan of the abdomen that showed diffuse prominence of the ivan of the colon and rectum and colitis was suspected. The patient had also probably a fatty liver infiltration and some bibasilar atelectatic changes and a calcified her [place] the right mid/right lower lobe area. Based on this, ID was consulted, and the patient was started on IV heparin. No significant leukocytosis. No hemodynamic instability at this point. No chest pain. The patient underwent a AN today that showed no evidence of any valvular vegetation. CAT scan of the chest was also done that showed some limited patchy infiltrates in lung bases bilaterally and there are also small effusions. No evidence of any pulmonary embolism. The patient was having some limited mental status change which improved and this morning he seems to be communicating and conversing appropriately. Abdomen is slightly tender. No rebound tenderness or guarding. No acute abdomen. No fever or chills. Lactic acid was elevated at 3.8 and subsequently dropped down to 1.4 and follow-up levels show that the lactic acid is up to 3.8 again. Stool for C. diff is been negative. On 02/17/2017, the patient is doing well. The patient is able to sit up on a chair. Abdomen is less tender. No new blood cultures. He is still on examination Zosyn and vancomycin. He is afebrile for now. He is tolerating diet. No active bowel movements. AN was done and there is no evidence of endocarditis. The patient has no significant leukocytosis on today's evaluation. He is in atrial fibrillation and he is on IV heparin. He is also on an insulin drip for blood sugar control. Renal function stable with a creatinine of 1.2. The subsequent lactic acid level is still pending for now. I was told that earlier he was a bit bronchospastic and wheezy, however on today 's evaluation the patient is moving adequate breath sounds bilaterally without any significant wheezing at this point. Stool for C. diff has been negative. On 02/18/2017, patient seems to be doing better than expected, denies any specific complaints, abdomen is definitely less tender. Patient remains on Zosyn and vancomycin, his AN showed no evidence of endocarditis, labsshowed improvement in his WBC count down to 6.0 hemoglobin is 9.5 electrolytes and renal profile are improved. Bicarb remains low at 18.blood cultures from 02/13 showed staph hominis.patient tested negative for C. difficile.lactic acid is down to 1.8. It was 3.9 2days ago. Patient is seen again today 02/19/2017 in follow-up in the selective care unit. He is awake and alert in no acute distress. He denies any shortness of breath , cough or congestion. No chest pain. No diarrhea. His is at the bedside and feels he is nearly back to his baseline mentally. Been up ambulating without difficulty. His hemoglobin continues to drift down. Currently at 9.1. No leukocytosis. Creatinine 1.06. Objective - Vital Signs Vital signs: Vital Signs Temp 98.2 F 02/19/17 08:18 Pulse 76 02/19/17 08:18 Resp 18 02/19/17 08:18 BP 129/69 02/19/17 08:18 Pulse Ox 97 02/19/17 08:18 Intake & Output 02/18/17 02/19/17 02/19/17 18:59 06:59 18:59 Intake Total 550.0 268.256 10.596 Output Total 1250 700 200 Balance -700.0 -431.744 -189.404 Weight 77 kg Intake: IV 150.0 150 Piperacillin-Tazobactam 3 50.0 50 .375 gm In Dextrose/Water 1 50ml.bag @ 12.5 mls/hr IVPB Q8HR [facility] Rx#: [id number] metroNIDAZOLE-NS PMX 500 100 100 mg In Saline 1 100ml.bag @ 100 mls/hr IVPB Q8HR [facility] Rx#:[id number] Intake, IV Titration 400 118.256 10.596 Amount Insulin Regular 100 unit 98.256 10.596 In Sodium Chloride 0.9% 100 ml @ Per Protocol IV .Q0M [facility] Rx#:[id number] Sodium Chloride 0.9% 1, 150 20 000 ml @ 20 mls/hr IV . Q24H [facility] Rx#:[id number] Vancomycin 1,250 mg In 250 Sodium Chloride 0.9% 250 ml @ 125 mls/hr IVPB Q16H [facility] Rx#:[id number] Output: Urine 1250 700 Stool 200 Other: Voiding Method Indwelling Catheter Urinal Urinal # Bowel Movements 1 - Exam GENERAL EXAM: Alert, active, comfortable in no apparent distress. HEAD: Normocephalic. EYES: Normal reaction of pupils, equal size. NOSE: Clear with pink turbinates. THROAT: No erythema or exudates. NECK: No masses, no JVD. CHEST: No chest wall deformity. LUNGS: Equal air entry with no crackles, wheeze, rhonchi or dullness. CVS: S1 and S2 normal with no audible murmurs, regular rhythm. ABDOMEN: No hepatosplenomegaly, normal bowel sounds, no guarding or rigidity. SPINE: No scoliosis or deformity SKIN: No rashes CENTRAL NERVOUS SYSTEM: No focal deficits, tone is normal in all 4 extremities. Extremities: There is no significant peripheral edema. No clubbing, no cyanosis. Peripheral pulses are intact. - Labs CBC & Chem 7: 02/19/17 06:14 02/19/17 06:14 Labs: Abnormal Lab Results - Last 24 Hours (Table) 02/18/17 02/18/17 02/18/17 Range/Units 04:13 11:58 17:27 RBC (4.30-5.90) m/uL Hgb (13.0-17.5) gm/dL Hct (39.0-53.0) % MCHC (31.0-37.0) g/dL RDW (11.5-15.5) % Lymphocytes # (1.0-4.8) k/uL Chloride (98-107) mmol/L Carbon Dioxide (22-30) mmol/L BUN (9-20) mg/dL Glucose (74-99) mg/dL POC Glucose (mg/dL) 251 H 399 H (75-99) mg/dL Hemoglobin A1c 6.3 H (4.2-6.1) % 02/18/17 02/18/1717 Range/Units 18:04 19:06 20:27 RBC (4.30-5.90) m/uL Hgb (13.0-17.5) gm/dL Hct (39.0-53.0) % MCHC (31.0-37.0) g/dL RDW (11.5-15.5) % Lymphocytes # (1.0-4.8) k/uL Chloride (98-107) mmol/L Carbon Dioxide (22-30) mmol/L BUN (9-20) mg/dL Glucose (74-99) mg/dL POC Glucose (mg/dL) 392 H 333 H 262 H (75-99) mg/dL Hemoglobin A1c (4.2-6.1) % 02/18/17 02/18/17 02/18/17 Range/Units 21:04 21:56 22:35 RBC (4.30-5.90) m/uL Hgb (13.0-17.5) gm/dL Hct (39.0-53.0) % MCHC (31.0-37.0) g/dL RDW (11.5-15.5) % Lymphocytes # (1.0-4.8) k/uL Chloride (98-107) mmol/L Carbon Dioxide (22-30) mmol/L BUN (9-20) mg/dL Glucose (74-99) mg/dL POC Glucose (mg/dL) 251 H 262 H 242 H (75-99) mg/dL Hemoglobin A1c (4.2-6.1) % 02/18/17 02/19/17 02/19/17 Range/Units 23:01 00:08 02:01 RBC (4.30-5.90) m/uL Hgb (13.0-17.5) gm/dL Hct (39.0-53.0) % MCHC (31.0-37.0) g/dL RDW (11.5-15.5) % Lymphocytes # (1.0-4.8) k/uL Chloride (98-107) mmol/L Carbon Dioxide (22-30) mmol/L BUN (9-20) mg/dL Glucose (74-99) mg/dL POC Glucose (mg/dL) 256 H 220 H 230 H (75-99) mg/dL Hemoglobin A1c (4.2-6.1) % 02/19/17 02/19/17 02/19/17 Range/Units 04:01 06:08 06:14 RBC 3.40 L (4.30-5.90) m/uL Hgb 9.1 L (13.0-17.5) gm/dL Hct 30.4 L (39.0-53.0) % MCHC 30.1 L (31.0-37.0) g/dL RDW 15.6 H (11.5-15.5) % Lymphocytes # 0.5 L (1.0-4.8) k/uL Chloride (98-107) mmol/L Carbon Dioxide (22-30) mmol/L BUN (9-20) mg/dL Glucose (74-99) mg/dL POC Glucose (mg/dL) 206 H 186 H (75-99) mg/dL Hemoglobin A1c (4.2-6.1) % 02/19/17 02/19/17 02/19/17 Range/Units 06:14 08:08 10:09 RBC (4.30-5.90) m/uL Hgb (13.0-17.5) gm/dL Hct (39.0-53.0) % MCHC (31.0-37.0) g/dL RDW (11.5-15.5) % Lymphocytes # (1.0-4.8) k/uL Chloride 109 H (98-107) mmol/L Carbon Dioxide 20 L (22-30) mmol/L BUN 22 H (9-20) mg/dL Glucose 166 H (74-99) mg/dL POC Glucose (mg/dL) 170 H 271 H (75-99) mg/dL Hemoglobin A1c (4.2-6.1) % Microbiology - Last 24 Hours (Table) 02/18/17 08:30 Gram Stain - Preliminary Sputum 02/16/17 01:20 Stool Culture - Preliminary Stool Yeast species 02/15/17 15:22 Blood Culture - Preliminary Blood No Growth after 72 hours 02/15/17 13:07 Blood Culture - Preliminary Blood No Growth after 72 hours Assessment and Plan Plan: Impression: 1 diffuse colitis with secondary bacteremia and sepsis. Rule out underlying ischemic colitis. Echocardiogram was done and subsequently a AN was performed and there is no evidence of endocarditis. The patient has staph hominis on the blood. Meanwhile, the patient's condition is improving. He is on antibiotics. He is on fluids. No change in mental status. No signs of ongoing septicemia at this point. No significant leukocytosis. Abdominal tenderness is also improving. 2 nausea vomiting and generalized weakness likely secondary to sepsis 3 coronary artery disease with previous bypass surgery 4 mitral valve replacement, prosthetic valve 5 diabetes mellitus, 6 CVA, history of 7 hyperlipidemia 8 AICD placement 9 mild lactic acidosis, recovered 10 atrial fibrillation Plan: The patient was seen and evaluated by Dr. Chase. Chest x-ray and labs were reviewed. We will give a dose of IV Lasix 40 mg 1 today. He continues to improve daily. We will continue to monitor him here on the selective care unit. We will increase his activity as tolerated. We'll continue to follow. Antibiotics per infectious disease.
[2017-02-19 12:06] LABS: Glucose,Whole Blood 296 mg/dL (75-99)
[2017-02-19 13:59] LABS: Glucose,Whole Blood 283 mg/dL (75-99)
--- NOTE | 2017-02-19 14:14 | P.PN ---
Subjective Principal diagnosis: Sepsis This is a 77-year-old gentleman with known history of coronary artery disease and prior bypass surgery, status post mitral valve replacement, ischemic cardiomyopathy with prior AICD implantation, hypertension, hyperlipidemia, who presented to the hospital following several episodes of diarrhea stools with associated fatigue and tiredness. Patient was also found to be febrile on admission here. He did have blood cultures performed which revealed gram- positive cocci in clusters. AN was performed by Dr. mcrae on and off which did not reveal any evidence of vegetations, no shunting across the intra-atrial septum. Mild to moderate atherosclerotic changes of the descending thoracic aorta. Patient continues to be in atrial fibrillation, heart rate in the 70s. Patient was initiated on Eliquis by Dr. Garcia yesterday. Overall he is feeling much better today. Objective - Vital Signs Vital signs: Vital Signs Temp 97.6 F 02/19/17 11:33 Pulse 82 02/19/17 12:10 Resp 18 02/19/17 11:33 BP 158/72 02/19/17 11:33 Pulse Ox 96 02/19/17 11:33 Intake & Output 02/18/17 02/19/17 02/19/17 18:59 06:59 18:59 Intake Total 550.0 268.256 22.009 Output Total 1250 700 400 Balance -700.0 -431.744 -377.991 Weight 77 kg Intake: IV 150.0 150 Piperacillin-Tazobactam 3 50.0 50 .375 gm In Dextrose/Water 1 50ml.bag @ 12.5 mls/hr IVPB Q8HR [facility] Rx#: [id number] metroNIDAZOLE-NS PMX 500 100 100 mg In Saline 1 100ml.bag @ 100 mls/hr IVPB Q8HR [facility] Rx#:[id number] Intake, IV Titration 400 118.256 22.009 Amount Insulin Regular 100 unit 98.256 22.009 In Sodium Chloride 0.9% 100 ml @ Per Protocol IV .Q0M [facility] Rx#:[id number] Sodium Chloride 0.9% 1, 150 20 000 ml @ 20 mls/hr IV . Q24H [facility] Rx#:[id number] Vancomycin 1,250 mg In 250 Sodium Chloride 0.9% 250 ml @ 125 mls/hr IVPB Q16H [facility] Rx#:[id number] Output: Urine 1250 700 Stool 400 Other: Voiding Method Indwelling Catheter Urinal Urinal # Bowel Movements 1 - Exam PHYSICAL EXAMINATION: HEENT: Head is atraumatic, normocephalic. Pupils equal, round. Neck is supple. There is no elevated jugular venous pressure. HEART EXAMINATION: Heart S1 and S2 irregularly irregular systolic murmur is heard. CHEST EXAMINATION: Lungs are clear to auscultation and precussion. No chest wall tenderness is noted on palpation or with deep breathing. ABDOMEN: Soft, nontender. Bowel sounds are heard. No organomegaly noted. EXTREMITIES: 2+ peripheral pulses with no evidence of peripheral edema and no calf tenderness noted]. NEUROLOGIC [patient is awake, alert and oriented -3.] . - Labs CBC & Chem 7: 02/19/17 06:14 02/19/17 06:14 Labs: Abnormal Lab Results - Last 24 Hours (Table) 02/18/17 02/18/17 02/18/17 Range/Units 04:13 17:27 18:04 RBC (4.30-5.90) m/uL Hgb (13.0-17.5) gm/dL Hct (39.0-53.0) % MCHC (31.0-37.0) g/dL RDW (11.5-15.5) % Lymphocytes # (1.0-4.8) k/uL Chloride (98-107) mmol/L Carbon Dioxide (22-30) mmol/L BUN (9-20) mg/dL Glucose (74-99) mg/dL POC Glucose (mg/dL) 399 H 392 H (75-99) mg/dL Hemoglobin A1c 6.3 H (4.2-6.1) % 02/18/17 02/18/17 02/18/17 Range/Units 19:06 20:27 21:04 RBC (4.30-5.90) m/uL Hgb (13.0-17.5) gm/dL Hct (39.0-53.0) % MCHC (31.0-37.0) g/dL RDW (11.5-15.5) % Lymphocytes # (1.0-4.8) k/uL Chloride (98-107) mmol/L Carbon Dioxide (22-30) mmol/L BUN (9-20) mg/dL Glucose (74-99) mg/dL POC Glucose (mg/dL) 333 H 262 H 251 H (75-99) mg/dL Hemoglobin A1c (4.2-6.1) % 02/18/17 02/18/17 02/18/17 Range/Units 21:56 22:35 23:01 RBC (4.30-5.90) m/uL Hgb (13.0-17.5) gm/dL Hct (39.0-53.0) % MCHC (31.0-37.0) g/dL RDW (11.5-15.5) % Lymphocytes # (1.0-4.8) k/uL Chloride (98-107) mmol/L Carbon Dioxide (22-30) mmol/L BUN (9-20) mg/dL Glucose (74-99) mg/dL POC Glucose (mg/dL) 262 H 242 H 256 H (75-99) mg/dL Hemoglobin A1c (4.2-6.1) % 02/19/17 02/19/17 02/19/17 Range/Units 00:08 02:01 04:01 RBC (4.30-5.90) m/uL Hgb (13.0-17.5) gm/dL Hct (39.0-53.0) % MCHC (31.0-37.0) g/dL RDW (11.5-15.5) % Lymphocytes # (1.0-4.8) k/uL Chloride (98-107) mmol/L Carbon Dioxide (22-30) mmol/L BUN (9-20) mg/dL Glucose (74-99) mg/dL POC Glucose (mg/dL) 220 H 230 H 206 H (75-99) mg/dL Hemoglobin A1c (4.2-6.1) % 02/19/17 02/19/17 02/19/17 Range/Units 06:08 06:14 06:14 RBC 3.40 L (4.30-5.90) m/uL Hgb 9.1 L (13.0-17.5) gm/dL Hct 30.4 L (39.0-53.0) % MCHC 30.1 L (31.0-37.0) g/dL RDW 15.6 H (11.5-15.5) % Lymphocytes # 0.5 L (1.0-4.8) k/uL Chloride 109 H (98-107) mmol/L Carbon Dioxide 20 L (22-30) mmol/L BUN 22 H (9-20) mg/dL Glucose 166 H (74-99) mg/dL POC Glucose (mg/dL) 186 H (75-99) mg/dL Hemoglobin A1c (4.2-6.1) % 02/19/17 02/19/17 02/19/17 Range/Units 08:08 10:09 12:04 RBC (4.30-5.90) m/uL Hgb (13.0-17.5) gm/dL Hct (39.0-53.0) % MCHC (31.0-37.0) g/dL RDW (11.5-15.5) % Lymphocytes # (1.0-4.8) k/uL Chloride (98-107) mmol/L Carbon Dioxide (22-30) mmol/L BUN (9-20) mg/dL Glucose (74-99) mg/dL POC Glucose (mg/dL) 170 H 271 H 296 H (75-99) mg/dL Hemoglobin A1c (4.2-6.1) % 02/19/17 Range/Units 13:56 RBC (4.30-5.90) m/uL Hgb (13.0-17.5) gm/dL Hct (39.0-53.0) % MCHC (31.0-37.0) g/dL RDW (11.5-15.5) % Lymphocytes # (1.0-4.8) k/uL Chloride (98-107) mmol/L Carbon Dioxide (22-30) mmol/L BUN (9-20) mg/dL Glucose (74-99) mg/dL POC Glucose (mg/dL) 283 H (75-99) mg/dL Hemoglobin A1c (4.2-6.1) % Microbiology - Last 24 Hours (Table) 02/18/17 08:30 Gram Stain - Preliminary Sputum 02/16/17 01:20 Stool Culture - Preliminary Stool Yeast species 02/15/17 15:22 Blood Culture - Preliminary Blood No Growth after 72 hours 02/15/17 13:07 Blood Culture - Preliminary Blood No Growth after 72 hours Assessment and Plan (1) Sepsis Status: Acute (2) Paroxysmal a-fib Status: Acute (3) Elevated troponin Status: Acute (4) S/P MVR (mitral valve replacement) Status: Acute (5) Hx of CABG Status: Acute (6) Ischemic cardiomyopathy Status: Acute (7) AICD (automatic cardioverter/defibrillator) present Status: Acute (8) CVA (cerebral vascular accident) Status: Acute (9) HTN (hypertension) Status: Acute (10) Hyperlipemia Status: Acute (11) Diabetes Status: Acute (12) Positive blood cultures Status: Acute Plan: From cardiology's perspective, we will continue anticoagulation with Eliquis, continue aspirin. We will also check to make sure that the patient has coverage for Eliquis. DNP note has been reviewed, I agree with a documented findings and plan of care. Patient was seen and examined.
[2017-02-19 14:19] LABS: Glucose,Whole Blood 258 mg/dL (75-99)
[2017-02-19 16:08] LABS: Glucose,Whole Blood 215 mg/dL (75-99)
--- NOTE | 2017-02-19 16:48 | P.PN ---
Subjective DATE OF ADMISSION: Reason for admission is fever. HISTORY OF PRESENT ILLNESS: This a 77-year-old gentleman with history of CVA with left-sided weakness, CAD with pacemaker and defibrillator. Comes in the hospital with intractable nausea, vomiting for the last 2 to 3 days. Patient has been more weak and drowsy over the last few days. States that he has had few episodes of watery loose bowel movements over the same period of time. Patient was not able to tolerate oral intake and has been vomiting over the same period of time. The patient denies having any focal abdominal pain. States his pain is predominantly in the epigastric region at this time. Patient was noted to have an indeterminate troponin leak. Patient's EKG in the emergency room was consistent with new onset atrial fibrillation with increased ventricular rate. However, patient was also noted to have a T-max of 101.5 in the hospital as well. A UA did not reveal any significant abnormalities concerning for UTI. Patient is also asymptomatic. Patient does not have any difficulty in breathing, cough. A chest x-ray shows bibasilar atelectasis; however, no infiltrate is not. This is reviewed by myself. 02/15/17 cxr was reviewed today tolerating diet no new symptoms reported blood cultures are positive Intermittent hospital course Or the last few days. Patient was attributed to have an intra-abdominal illness likely secondary to colitis of unknown etiology AN was done which was not positive for any vegetations Patient's HIDA scan did have biliary dyskinesia Currently on anticoagulation for atrial fibrillation. 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 GENERALLY: Patient appears to be alert, oriented x3. HEART: S1, S2 present. No murmur appreciated. LUNGS: Crackles noted at the bases GENITOURINARY: No Patricia in place. EXTREMITIES: Pulses can be palpated distally. Denies any tenderness on gross palpation. SKIN: On a gross skin exam does not appear to have any purpura or any skin rashes that were noted. NEURO: Strength is 5/5 on the right , some weakness noted on the left, which is chronic. ABDOMEN: Some tenderness noted in the right upper quadrant. Pickett's is negative. No other focal tenderness noted on the right Upper quadrant Objective - Vital Signs Vital signs: Vital Signs Temp 98.2 F 02/19/17 16:20 Pulse 79 02/19/17 16:20 Resp 18 02/19/17 16:20 BP 118/57 02/19/17 16:20 Pulse Ox 98 02/19/17 16:20 Intake & Output 02/18/17 02/19/17 02/19/17 18:59 06:59 18:59 Intake Total 550.0 268.256 47.876 Output Total 6213 851 7124 Balance -700.0 -431.744 -1352.124 Weight 77 kg Intake: IV 150.0 150 Piperacillin-Tazobactam 3 50.0 50 .375 gm In Dextrose/Water 1 50ml.bag @ 12.5 mls/hr IVPB Q8HR [facility] Rx#: [id number] metroNIDAZOLE-NS PMX 500 100 100 mg In Saline 1 100ml.bag @ 100 mls/hr IVPB Q8HR [facility] Rx#:[id number] Intake, IV Titration 400 118.256 47.876 Amount Insulin Regular 100 unit 98.256 47.876 In Sodium Chloride 0.9% 100 ml @ Per Protocol IV .Q0M [facility] Rx#:[id number] Sodium Chloride 0.9% 1, 150 20 000 ml @ 20 mls/hr IV . Q24H [facility] Rx#:[id number] Vancomycin 1,250 mg In 250 Sodium Chloride 0.9% 250 ml @ 125 mls/hr IVPB Q16H [facility] Rx#:[id number] Output: Urine 1250 700 800 Stool 600 Other: Voiding Method Indwelling Catheter Urinal Urinal # Voids 2 # Bowel Movements 1 - Labs CBC & Chem 7: 02/19/17 06:14 02/19/17 06:14 Labs: Abnormal Lab Results - Last 24 Hours (Table) 02/18/17 02/18/17 02/18/17 Range/Units 04:13 17:27 18:04 RBC (4.30-5.90) m/uL Hgb (13.0-17.5) gm/dL Hct (39.0-53.0) % MCHC (31.0-37.0) g/dL RDW (11.5-15.5) % Lymphocytes # (1.0-4.8) k/uL Chloride (98-107) mmol/L Carbon Dioxide (22-30) mmol/L BUN (9-20) mg/dL Glucose (74-99) mg/dL POC Glucose (mg/dL) 399 H 392 H (75-99) mg/dL Hemoglobin A1c 6.3 H (4.2-6.1) % 02/18/17 02/18/17 02/18/17 Range/Units 19:06 20:27 21:04 RBC (4.30-5.90) m/uL Hgb (13.0-17.5) gm/dL Hct (39.0-53.0) % MCHC (31.0-37.0) g/dL RDW (11.5-15.5) % Lymphocytes # (1.0-4.8) k/uL Chloride (98-107) mmol/L Carbon Dioxide (22-30) mmol/L BUN (9-20) mg/dL Glucose (74-99) mg/dL POC Glucose (mg/dL) 333 H 262 H 251 H (75-99) mg/dL Hemoglobin A1c (4.2-6.1) % 02/18/17 02/18/17 02/18/17 Range/Units 21:56 22:35 23:01 RBC (4.30-5.90) m/uL Hgb (13.0-17.5) gm/dL Hct (39.0-53.0) % MCHC (31.0-37.0) g/dL RDW (11.5-15.5) % Lymphocytes # (1.0-4.8) k/uL Chloride (98-107) mmol/L Carbon Dioxide (22-30) mmol/L BUN (9-20) mg/dL Glucose (74-99) mg/dL POC Glucose (mg/dL) 262 H 242 H 256 H (75-99) mg/dL Hemoglobin A1c (4.2-6.1) % 02/19/17 02/19/17 02/19/17 Range/Units 00:08 02:01 04:01 RBC (4.30-5.90) m/uL Hgb (13.0-17.5) gm/dL Hct (39.0-53.0) % MCHC (31.0-37.0) g/dL RDW (11.5-15.5) % Lymphocytes # (1.0-4.8) k/uL Chloride (98-107) mmol/L Carbon Dioxide (22-30) mmol/L BUN (9-20) mg/dL Glucose (74-99) mg/dL POC Glucose (mg/dL) 220 H 230 H 206 H (75-99) mg/dL Hemoglobin A1c (4.2-6.1) % 02/19/17 02/19/17 02/19/17 Range/Units 06:08 06:14 06:14 RBC 3.40 L (4.30-5.90) m/uL Hgb 9.1 L (13.0-17.5) gm/dL Hct 30.4 L (39.0-53.0) % MCHC 30.1 L (31.0-37.0) g/dL RDW 15.6 H (11.5-15.5) % Lymphocytes # 0.5 L (1.0-4.8) k/uL Chloride 109 H (98-107) mmol/L Carbon Dioxide 20 L (22-30) mmol/L BUN 22 H (9-20) mg/dL Glucose 166 H (74-99) mg/dL POC Glucose (mg/dL) 186 H (75-99) mg/dL Hemoglobin A1c (4.2-6.1) % 02/19/17 02/19/17 02/19/17 Range/Units 08:08 10:09 12:04 RBC (4.30-5.90) m/uL Hgb (13.0-17.5) gm/dL Hct (39.0-53.0) % MCHC (31.0-37.0) g/dL RDW (11.5-15.5) % Lymphocytes # (1.0-4.8) k/uL Chloride (98-107) mmol/L Carbon Dioxide (22-30) mmol/L BUN (9-20) mg/dL Glucose (74-99) mg/dL POC Glucose (mg/dL) 170 H 271 H 296 H (75-99) mg/dL Hemoglobin A1c (4.2-6.1) % 02/19/17 02/19/17 02/19/17 Range/Units 13:56 14:18 16:03 RBC (4.30-5.90) m/uL Hgb (13.0-17.5) gm/dL Hct (39.0-53.0) % MCHC (31.0-37.0) g/dL RDW (11.5-15.5) % Lymphocytes # (1.0-4.8) k/uL Chloride (98-107) mmol/L Carbon Dioxide (22-30) mmol/L BUN (9-20) mg/dL Glucose (74-99) mg/dL POC Glucose (mg/dL) 283 H 258 H 215 H (75-99) mg/dL Hemoglobin A1c (4.2-6.1) % Microbiology - Last 24 Hours (Table) 02/15/17 13:07 Blood Culture - Preliminary Blood No Growth after 96 hours 02/18/17 08:30 Gram Stain - Preliminary Sputum 02/16/17 01:20 Stool Culture - Preliminary Stool Yeast species 02/15/17 15:22 Blood Culture - Preliminary Blood No Growth after 72 hours Assessment and Plan Plan: ASSESSMENT AND PLAN: 1. Sepsis secondary to an unknown etiology. Bacteremia with gram positive and bacillus 2. Radiologic diagnosis of colitis; however, no significant clinical correlation. 3. New onset atrial fibrillation , rate controlled 4. Cerebrovascular accident. 5. Coronary artery disease. 6. Hypertension. 7. Lactic acidosis secondary to above. 8. Nonanion gap metabolic acidosis secondary to above. 9. Indeterminate troponin leak likely due to sepsis. #10 right lower lobe pneumonia attributed to an aspiration PLAN: Patient is is able to ambulate without much difficulty Continue with Kylee at this time Discussed regarding cholecystectomy at a later date. Will likely discharge the patient home tomorrow Patient received a dose of Lasix 40 mg IV which the appropriate We'll repeat a chest x-ray as well tomorrow morning Patient is currently rate controlled atrial fibrillation
[2017-02-19] MEDS ORDERED: INSULIN REGULAR 100 UNIT in SODIUM CHLORIDE 0.9% 100 ML IV SCH (17:15)
[2017-02-19] MEDS: INSULIN LISPRO (humaLOG) 300 UNIT/3 ML VIAL SQ SCH (17:33)
[2017-02-19 18:18] LABS: Glucose,Whole Blood 221 mg/dL (75-99)
[2017-02-19 20:05] LABS: Glucose,Whole Blood 190 mg/dL (75-99)
[2017-02-19] MEDS: risperiDONE 0.25 MG TAB PO SCH (21:33)
[2017-02-19 22:07] LABS: Glucose,Whole Blood 308 mg/dL (75-99)
[2017-02-20] MEDS: metroNIDAZOLE-NS PMX 500 MG in SALINE 1 100ML.BAG IVPB SCH ×3 (00:03→15:57)
[2017-02-20 00:22] LABS: Glucose,Whole Blood 327 mg/dL (75-99)
[2017-02-20 02:00] LABS: Glucose,Whole Blood 241 mg/dL (75-99)
[2017-02-20] MEDS: PIPERACILLIN-TAZOBACTAM 3.375 GM in DEXTROSE/WATER 1 50ML.BAG IVPB SCH ×3 (03:20→15:58)
[2017-02-20 04:06] LABS: Glucose,Whole Blood 165 mg/dL (75-99)
[2017-02-20] MEDS: methylPREDNISolone SOD SUCCI 40 MG/ML 1 ML VIAL IV SCH ×2 (04:36→08:26)
[2017-02-20 04:57] VITALS: RESP 18
--- NOTE | 2017-02-20 05:49 | PN ---
DATE OF SERVICE: 02/19/2017 Reason for followup is likely ischemic colitis and ( ) aspiration pneumonitis. INTERVAL HISTORY: The patient is afebrile. Overall, he is feeling better, breathing comfortably. Occasional cough. No further nausea, vomiting or any abdominal pain or any diarrhea. On examination, blood pressure is 118/57 with a pulse of 77, temperature 98.2. He is 98% on room air. General description is an elderly male ( ) in no distress. RESPIRATORY SYSTEM: Unlabored breathing. Clear to auscultation anteriorly. HEART: S1, S2. Regular rate and rhythm. ABDOMEN: Soft, no tenderness. LABS: Hemoglobin is 9.1, white count 7.2 with BUN of 22, creatinine 1.06. Blood culture has been negative. DIAGNOSTIC IMPRESSION AND PLAN: Patient admitted to the hospital with sepsis most likely ischemic colitis, positive blood cultures representing mostly skin contamination ( ). ( ) has been negative. Plan to finish therapy with oral Augmentin for another 7 to 10 days. Continue supportive care.
[2017-02-20 06:02] LABS: Glucose,Whole Blood 145 mg/dL (75-99)
[2017-02-20 06:11] LABS: Basophils % (A) 0 %; CHCM 30.5; Eosinophils % (A) 0 %; HDW 2.75; HGB 9.2 gm/dL (13.0-17.5); Hypochromasia Moderate; Luc # (Auto) 0.29; Luc % (Auto) 2; Lymphocytes % (A) 8 %; MCH 27.3 pg (25.0-35.0); MCHC 30.8 g/dL (31.0-37.0); MCV 88.9 fL (80.0-100.0); Mean Platelet Volume 8.8; Monocytes # (A) 0.6 k/uL (0-1.0); Monocytes % (A) 5 %; Neutrophils # (A) 10.4 k/uL (1.3-7.7); Neutrophils % (A) 84 %; RBC 3.38 m/uL (4.30-5.90); RDW 15.9 % (11.5-15.5); WBC 12.3 k/uL (3.8-10.6); WBC (Perox) 11.63
[2017-02-20 06:30] LABS: ALT 22 U/L (21-72); AST 14 U/L (17-59); Alkaline Phosphatase 57 U/L (38-126); Anion Gap 12 mmol/L; Blood Urea Nitrogen 35 mg/dL (9-20); Calcium 9.5 mg/dL (8.4-10.2); Carbon Dioxide 22 mmol/L (22-30); Chloride 107 mmol/L (98-107); Glucose 143 mg/dL (74-99); Magnesium 1.9 mg/dL (1.6-2.3); Non-African American GFR(MDRD) 51 (>60 ml/min/1.73 sqM); Phosphorous 3.8 mg/dL (2.5-4.5); Sodium 141 mmol/L (137-145); Total Bilirubin 0.4 mg/dL (0.2-1.3); Total Protein 6.1 g/dL (6.3-8.2)
[2017-02-20] MEDS: PANTOPRAZOLE 40 MG TABLET PO SCH (07:08)
[2017-02-20] MEDS: INSULIN LISPRO (humaLOG) 300 UNIT/3 ML VIAL SQ SCH ×3 (07:08→17:07)
[2017-02-20 07:51] LABS: Glucose,Whole Blood 185 mg/dL (75-99)
[2017-02-20] MEDS: APIXABAN 5 MG TAB PO SCH (08:26)
[2017-02-20] MEDS: METOPROLOL TARTRATE 25 MG TAB PO SCH (08:26)
[2017-02-20] MEDS: LISINOPRIL 20 MG TAB PO SCH (08:27)
[2017-02-20] MEDS: ASPIRIN 81 MG CHEW PO SCH (08:27)
[2017-02-20] MEDS: IPRATROPIUM-ALBUTEROL 3 ML NEB INHALATION SCH ×3 (08:39→16:12)
[2017-02-20 10:11] LABS: Glucose,Whole Blood 189 mg/dL (75-99)
--- NOTE | 2017-02-20 10:38 | P.PN ---
Subjective Principal diagnosis: Acute colitis and sepsis 77-year-old male patient with an extensive cardiovascular history involving history of coronary artery disease, previous bypass surgery and previous mitral valve repair with a bioprosthetic valve, along with history of pacer/ defibrillator insertion, and history of previous CVA with left-sided weakness, presented to the hospital because of generalized weakness and lethargy. Subsequently after coming the hospital the patient started becoming nauseous and started having episodes of emesis and loose bowel movements. Blood cultures came back positive for staph hominis and a second blood culture came back positive for gram-positive bacillus, nonanthrax. The patient had a CAT scan of the abdomen that showed diffuse prominence of the ivan of the colon and rectum and colitis was suspected. The patient had also probably a fatty liver infiltration and some bibasilar atelectatic changes and a calcified her [place] the right mid/right lower lobe area. Based on this, ID was consulted, and the patient was started on IV heparin. No significant leukocytosis. No hemodynamic instability at this point. No chest pain. The patient underwent a AN today that showed no evidence of any valvular vegetation. CAT scan of the chest was also done that showed some limited patchy infiltrates in lung bases bilaterally and there are also small effusions. No evidence of any pulmonary embolism. The patient was having some limited mental status change which improved and this morning he seems to be communicating and conversing appropriately. Abdomen is slightly tender. No rebound tenderness or guarding. No acute abdomen. No fever or chills. Lactic acid was elevated at 3.8 and subsequently dropped down to 1.4 and follow-up levels show that the lactic acid is up to 3.8 again. Stool for C. diff is been negative. On 02/17/2017, the patient is doing well. The patient is able to sit up on a chair. Abdomen is less tender. No new blood cultures. He is still on examination Zosyn and vancomycin. He is afebrile for now. He is tolerating diet. No active bowel movements. AN was done and there is no evidence of endocarditis. The patient has no significant leukocytosis on today's evaluation. He is in atrial fibrillation and he is on IV heparin. He is also on an insulin drip for blood sugar control. Renal function stable with a creatinine of 1.2. The subsequent lactic acid level is still pending for now. I was told that earlier he was a bit bronchospastic and wheezy, however on today 's evaluation the patient is moving adequate breath sounds bilaterally without any significant wheezing at this point. Stool for C. diff has been negative. On 02/18/2017, patient seems to be doing better than expected, denies any specific complaints, abdomen is definitely less tender. Patient remains on Zosyn and vancomycin, his AN showed no evidence of endocarditis, labsshowed improvement in his WBC count down to 6.0 hemoglobin is 9.5 electrolytes and renal profile are improved. Bicarb remains low at 18.blood cultures from 02/13 showed staph hominis.patient tested negative for C. difficile.lactic acid is down to 1.8. It was 3.9 2days ago. Patient is seen again today 02/19/2017 in follow-up in the selective care unit. He is awake and alert in no acute distress. He denies any shortness of breath , cough or congestion. No chest pain. No diarrhea. His is at the bedside and feels he is nearly back to his baseline mentally. Been up ambulating without difficulty. His hemoglobin continues to drift down. Currently at 9.1. No leukocytosis. Creatinine 1.06. The patient is seen again today 02/20/2017 in follow-up on the selective care unit. He is currently sitting up in a chair at the bedside. He is doing quite a bit better today as compared to the previous days. He is feeling nearly back to his baseline. He denies any worsening shortness of breath, cough or congestion. He is maintaining good O2 saturations in the upper 90s on room air. He's been afebrile. Sputum cultures pending. He remains in a negative balance. He did receive Lasix 1 yesterday. Current creatinine 1.34. Hemoglobin stable at 9.2. Objective - Vital Signs Vital signs: Vital Signs Temp 97.8 F 02/20/17 08:31 Pulse 80 02/20/17 08:49 Resp 18 02/20/17 08:31 BP 138/60 02/20/17 08:31 Pulse Ox 97 02/20/17 08:31 Intake & Output 02/19/17 02/20/17 02/20/17 18:59 06:59 18:59 Intake Total 57.143 202.662 243.703 Output Total 1400 725 500 Balance -1342.857 -522.338 -256.297 Weight 84.1 kg Intake: IV 100 metroNIDAZOLE-NS PMX 500 100 mg In Saline 1 100ml.bag @ 100 mls/hr IVPB Q8HR [facility] Rx#:[id number] Intake, IV Titration 57.143 102.662 3.703 Amount Insulin Regular 100 unit 57.143 In Sodium Chloride 0.9% 100 ml @ Per Protocol IV .Q0M [facility] Rx#:[id number] Insulin Regular 100 unit 52.662 3.703 In Sodium Chloride 0.9% 100 ml @ Titrate IV .Q0M [facility] Rx#:[id number] Piperacillin-Tazobactam 3 50 .375 gm In Dextrose/Water 1 50ml.bag @ 12.5 mls/hr IVPB Q8H [facility] Rx#: [id number] Oral 240 Output: Urine 800 725 300 Stool 600 200 Other: Voiding Method Urinal Urinal Urinal # Voids 2 1 # Bowel Movements 1 - Exam GENERAL EXAM: Alert, active, comfortable in no apparent distress. HEAD: Normocephalic. EYES: Normal reaction of pupils, equal size. NOSE: Clear with pink turbinates. THROAT: No erythema or exudates. NECK: No masses, no JVD. CHEST: No chest wall deformity. LUNGS: Equal air entry with no crackles, wheeze, rhonchi or dullness. CVS: S1 and S2 normal with no audible murmurs, irregular rhythm. ABDOMEN: No hepatosplenomegaly, normal bowel sounds, no guarding or rigidity. SPINE: No scoliosis or deformity SKIN: No rashes CENTRAL NERVOUS SYSTEM: No focal deficits, tone is normal in all 4 extremities. Extremities: There is no significant peripheral edema. No clubbing, no cyanosis. Peripheral pulses are intact. - Labs CBC & Chem 7: 02/20/17 05:43 02/20/17 05:43 Labs: Abnormal Lab Results - Last 24 Hours (Table) 02/19/17 02/19/17 02/19/17 Range/Units 12:04 13:56 14:18 WBC (3.8-10.6) k/uL RBC (4.30-5.90) m/uL Hgb (13.0-17.5) gm/dL Hct (39.0-53.0) % MCHC (31.0-37.0) g/dL RDW (11.5-15.5) % Neutrophils # (1.3-7.7) k/uL BUN (9-20) mg/dL Creatinine (0.66-1.25) mg/dL Glucose (74-99) mg/dL POC Glucose (mg/dL) 296 H 283 H 258 H (75-99) mg/dL AST (17-59) U/L Total Protein (6.3-8.2) g/dL Albumin (3.5-5.0) g/dL 02/19/17 02/19/17 02/19/17 Range/Units 16:03 18:13 20:03 WBC (3.8-10.6) k/uL RBC (4.30-5.90) m/uL Hgb (13.0-17.5) gm/dL Hct (39.0-53.0) % MCHC (31.0-37.0) g/dL RDW (11.5-15.5) % Neutrophils # (1.3-7.7) k/uL BUN (9-20) mg/dL Creatinine (0.66-1.25) mg/dL Glucose (74-99) mg/dL POC Glucose (mg/dL) 215 H 221 H 190 H (75-99) mg/dL AST (17-59) U/L Total Protein (6.3-8.2) g/dL Albumin (3.5-5.0) g/dL 02/19/17 02/20/17 02/20/17 Range/Units 22:05 00:00 01:58 WBC (3.8-10.6) k/uL RBC (4.30-5.90) m/uL Hgb (13.0-17.5) gm/dL Hct (39.0-53.0) % MCHC (31.0-37.0) g/dL RDW (11.5-15.5) % Neutrophils # (1.3-7.7) k/uL BUN (9-20) mg/dL Creatinine (0.66-1.25) mg/dL Glucose (74-99) mg/dL POC Glucose (mg/dL) 308 H 327 H 241 H (75-99) mg/dL AST (17-59) U/L Total Protein (6.3-8.2) g/dL Albumin (3.5-5.0) g/dL 02/20/17 02/20/17 02/20/17 Range/Units 04:04 05:43 05:43 WBC 12.3 H (3.8-10.6) k/uL RBC 3.38 L (4.30-5.90) m/uL Hgb 9.2 L (13.0-17.5) gm/dL Hct 30.0 L (39.0-53.0) % MCHC 30.8 L (31.0-37.0) g/dL RDW 15.9 H (11.5-15.5) % Neutrophils # 10.4 H (1.3-7.7) k/uL BUN 35 H (9-20) mg/dL Creatinine 1.34 H (0.66-1.25) mg/dL Glucose 143 H (74-99) mg/dL POC Glucose (mg/dL) 165 H (75-99) mg/dL AST 14 L (17-59) U/L Total Protein 6.1 L (6.3-8.2) g/dL Albumin 3.2 L (3.5-5.0) g/dL 02/20/17 02/20/17 02/20/17 Range/Units 05:59 07:49 09:58 WBC (3.8-10.6) k/uL RBC (4.30-5.90) m/uL Hgb (13.0-17.5) gm/dL Hct (39.0-53.0) % MCHC (31.0-37.0) g/dL RDW (11.5-15.5) % Neutrophils # (1.3-7.7) k/uL BUN (9-20) mg/dL Creatinine (0.66-1.25) mg/dL Glucose (74-99) mg/dL POC Glucose (mg/dL) 145 H 185 H 189 H (75-99) mg/dL AST (17-59) U/L Total Protein (6.3-8.2) g/dL Albumin (3.5-5.0) g/dL Microbiology - Last 24 Hours (Table) 02/16/17 01:20 Stool Culture - Final Stool Yeast species 02/15/17 15:22 Blood Culture - Preliminary Blood No Growth after 96 hours 02/15/17 13:07 Blood Culture - Preliminary Blood No Growth after 96 hours Assessment and Plan Plan: Impression: 1 diffuse colitis with secondary bacteremia and sepsis. Rule out underlying ischemic colitis. Echocardiogram was done and subsequently a AN was performed and there is no evidence of endocarditis. The patient has staph hominis on the blood. Meanwhile, the patient's condition is improving. 2 nausea vomiting and generalized weakness likely secondary to sepsis 3 coronary artery disease with previous bypass surgery 4 mitral valve replacement, prosthetic valve 5 diabetes mellitus, 6 CVA, history of 7 hyperlipidemia 8 AICD placement 9 mild lactic acidosis, recovered 10 atrial fibrillation, anticoagulated with apixaban Plan: The patient was seen and evaluated by Dr. Chase. He continues to improve daily. We will convert him to a prednisone taper. We will increase his activity as tolerated. Antibiotics to be Augmentin for another 7-10 days per infectious disease.
[2017-02-20 11:15] VITALS: BMI 29.9
[2017-02-20 11:52] LABS: Glucose,Whole Blood 176 mg/dL (75-99)
--- NOTE | 2017-02-20 12:45 | PN ---
DATE OF SERVICE: 02/20/2017 Reason for followup is possible ischemic colitis. INTERVAL HISTORY: The patient is afebrile. He is feeling better, breathing comfortably. Denies any significant chest pain, shortness of breath or cough. No abdominal pain. No nausea, vomiting or any diarrhea. On examination, his blood pressure is 138/60 with a pulse of 91, temperature 97.8, he is 97% on room air. General description is an elderly male, lying in bed in no distress. RESPIRATORY SYSTEM: Unlabored breathing. Clear to auscultation anteriorly. HEART: S1, S2, regular rate and rhythm. ABDOMEN: Soft, no tenderness. LABS: White count slightly elevated to 12.3 today with a BUN of 35 with a creatinine 1.34. DIAGNOSTIC IMPRESSION AND PLAN: Patient admitted to hospital with sepsis with colitis and cellulitis for ischemic colitis. Overall improvement on Zosyn. Plan is to finish therapy with p.o. Augmentin. Patient did have a slight jump in the white count, could be related to possible of ( ) and Diflucan may be needed for a short course. Continue supportive care.
--- NOTE | 2017-02-20 12:50 | P.DS ---
Providers Date of admission: 02/14/17 01:13 Attending physician: Mani Taylor Consults: 02/14/17 06:56 Consult Physician Routine Consulting Provider: Edy Yañez Consult Reason/Comments: elevated troponin Do you want consulting provider notified?: Yes 02/14/17 21:55 Consult Physician Routine Consulting Provider: Daryl Boo Consult Reason/Comments: blood culture showed gram + rods Do you want consulting provider notified?: Yes, Notify in am 02/15/17 23:12 Consult Physician Routine Consulting Provider: Raudel Parson Consult Reason/Comments: ICU management Do you want consulting provider notified?: Yes Primary care physician: Mani Taylor Hospital Course: DATE OF ADMISSION: Reason for admission is fever. HISTORY OF PRESENT ILLNESS: This a 77-year-old gentleman with history of CVA with left-sided weakness, CAD with pacemaker and defibrillator. Comes in the hospital with intractable nausea, vomiting for the last 2 to 3 days. Patient has been more weak and drowsy over the last few days. States that he has had few episodes of watery loose bowel movements over the same period of time. Patient was not able to tolerate oral intake and has been vomiting over the same period of time. The patient denies having any focal abdominal pain. States his pain is predominantly in the epigastric region at this time. Patient was noted to have an indeterminate troponin leak. Patient's EKG in the emergency room was consistent with new onset atrial fibrillation with increased ventricular rate. However, patient was also noted to have a T-max of 101.5 in the hospital as well. A UA did not reveal any significant abnormalities concerning for UTI. Patient is also asymptomatic. Patient does not have any difficulty in breathing, cough. A chest x-ray shows bibasilar atelectasis; however, no infiltrate is not. This is reviewed by myself. 02/15/17 cxr was reviewed today tolerating diet no new symptoms reported blood cultures are positive Intermittent hospital course Or the last few days. Patient was attributed to have an intra-abdominal illness likely secondary to colitis of unknown etiology AN was done which was not positive for any vegetations Patient's HIDA scan did have biliary dyskinesia Currently on anticoagulation for atrial fibrillation. 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 GENERALLY: Patient appears to be alert, oriented x3. HEART: S1, S2 present. No murmur appreciated. LUNGS: Crackles noted at the bases GENITOURINARY: No Patricia in place. EXTREMITIES: Pulses can be palpated distally. Denies any tenderness on gross palpation. SKIN: On a gross skin exam does not appear to have any purpura or any skin rashes that were noted. NEURO: Strength is 5/5 on the right , some weakness noted on the left, which is chronic. ABDOMEN: Some tenderness noted in the right upper quadrant. Pickett's is negative. No other focal tenderness noted on the right Upper quadrant Discharge diagnosis 1. Sepsis secondary to an unknown etiology. 2. Radiologic diagnosis of colitis; however, no significant clinical correlation. 3. New onset atrial fibrillation , rate controlled 4. Cerebrovascular accident. 5. Coronary artery disease. 6. Hypertension. 7. Lactic acidosis secondary to above. 8. Nonanion gap metabolic acidosis secondary to above. 9. Indeterminate troponin leak likely due to sepsis. #10 right lower lobe pneumonia attributed to an aspiration #11 biliary dyskinesia may need consideration for outpatient surgical evaluation Patient will be discharged home on Levemir 20 units twice a day this is steroid- induced hyperglycemia Novolog sliding scale will also be given Augmentin will be given for total of 10 days Patient is record follow-up with Dr. Taylor to titrate off insulin. Patient's creatinine on day of discharge is 1.34 Patient Condition at Discharge: Stable Plan - Discharge Summary New Discharge Prescriptions: New Apixaban [Eliquis] 5 mg PO BID #60 tab Insulin Detemir [Levemir] 20 unit SQ BID #1 vial INSULIN LISPRO (humaLOG) [humaLOG (formulary)] 10 unit SQ AC-TID #1 vial predniSONE 2 tab PO DAILY #12 tab Amoxic-Pot Clav 500-125 mg [Augmentin 500-125 mg] 1 tab PO Q12HR #14 tab Continue Metoprolol Tartrate [Lopressor] 50 mg PO BID Enalapril [Vasotec] 10 mg PO BID Aspirin/Dipyridamole [Aggrenox 25MG -200MG] 1 tab PO BID Discontinued metFORMIN HCL 1,000 mg PO BID Discharge Medication List Aspirin/Dipyridamole [Aggrenox 25MG -200MG] 1 tab PO BID 08/11/15 [History] Enalapril [Vasotec] 10 mg PO BID 08/11/15 [History] Metoprolol Tartrate [Lopressor] 50 mg PO BID 08/11/15 [History] Amoxic-Pot Clav 500-125 mg [Augmentin 500-125 mg] 1 tab PO Q12HR #14 tab [Rx] Apixaban [Eliquis] 5 mg PO BID #60 tab 02/20/17 [Rx] INSULIN LISPRO (humaLOG) [humaLOG (formulary)] 10 unit SQ AC-TID #1 vial [Rx] Insulin Detemir [Levemir] 20 unit SQ BID #1 vial 02/20/17 [Rx] predniSONE 2 tab PO DAILY #12 tab 02/20/17 [Rx] Follow up Appointment(s)/Referral(s): Mani Taylor MD [Primary Care Provider] - 02/25/17 Prakash Chase MD [STAFF PHYSICIAN] - 1 Week Edy Yañez MD [STAFF PHYSICIAN] - 1 Week Discharge Disposition: HOME WITH HOME HEALTH SERVICES
[2017-02-20 14:03] LABS: Glucose,Whole Blood 186 mg/dL (75-99)
[2017-02-20] MEDS: SODIUM CHLORIDE 0.9% 1,000 ML IV SCH (14:36)
--- NOTE | 2017-02-20 14:56 | P.PN ---
Subjective Principal diagnosis: Sepsis This is a pleasant 77-year-old gentleman with known history of coronary artery disease and prior bypass surgery, status post mitral valve replacement, ischemic cardiomyopathy with prior AICD implantation, hypertension, hyperlipidemia. He presented to the hospital following several episodes of diarrhea stools with associated fatigue and tiredness. Patient was also found to be febrile on admission and blood cultures showed gram-positive cocci in clusters. TE was performed by Dr. Garcia not reveal any evidence of vegetations , no shunting across the intra-atrial septum. Mild to moderate atherosclerotic changes of the descending thoracic aorta. Patient remains in atrial fibrillation with heart rates in the 70s. Patient has been initiated on Eliquis. Upon examination, he is feeling well. Resting comfortably in bed. Denies complaints of palpitations, dizziness, lightheadedness, chest discomfort or shortness of breath. Objective - Vital Signs Vital signs: Vital Signs Temp 97.8 F 02/20/17 08:31 Pulse 74 02/20/17 11:48 Resp 18 02/20/17 08:31 BP 138/60 02/20/17 08:31 Pulse Ox 97 02/20/17 08:31 Intake & Output 02/19/17 02/20/17 02/20/17 18:59 06:59 18:59 Intake Total 57.143 202.662 494.207 Output Total 1400 725 600 Balance -1342.857 -522.338 -105.793 Weight 84.1 kg 84.1 kg Intake: IV 100 metroNIDAZOLE-NS PMX 500 100 mg In Saline 1 100ml.bag @ 100 mls/hr IVPB Q8HR BRANDY Rx#:[id number] Intake, IV Titration 57.143 102.662 14.207 Amount Insulin Regular 100 unit 57.143 In Sodium Chloride 0.9% 100 ml @ Per Protocol IV .Q0M BRANDY Rx#:[id number] Insulin Regular 100 unit 52.662 14.207 In Sodium Chloride 0.9% 100 ml @ Titrate IV .Q0M BRANDY Rx#:[id number] Piperacillin-Tazobactam 3 50 .375 gm In Dextrose/Water 1 50ml.bag @ 12.5 mls/hr IVPB Q8H BRANDY Rx#: [id number] Oral 480 Output: Urine 800 725 400 Stool 600 200 Other: Voiding Method Urinal Urinal Urinal # Voids 2 1 # Bowel Movements 1 - Exam PHYSICAL EXAMINATION: HEENT: Head is atraumatic, normocephalic. Pupils equal, round. Neck is supple. There is no elevated jugular venous pressure. HEART EXAMINATION: Heart sounds irregularly irregular, S1 and S2, with a systolic murmur. CHEST EXAMINATION: Lungs are clear to auscultation and precussion. No chest wall tenderness is noted on palpation or with deep breathing. ABDOMEN: Soft, nontender. Bowel sounds are heard. No organomegaly noted. EXTREMITIES: 2+ peripheral pulses with no evidence of peripheral edema and no calf tenderness noted. NEUROLOGIC patient is awake, alert and oriented x3. . - Labs CBC & Chem 7: 02/20/17 05:43 02/20/17 05:43 Labs: Abnormal Lab Results - Last 24 Hours (Table) 02/19/17 02/19/17 02/19/17 Range/Units 16:03 18:13 20:03 WBC (3.8-10.6) k/uL RBC (4.30-5.90) m/uL Hgb (13.0-17.5) gm/dL Hct (39.0-53.0) % MCHC (31.0-37.0) g/dL RDW (11.5-15.5) % Neutrophils # (1.3-7.7) k/uL BUN (9-20) mg/dL Creatinine (0.66-1.25) mg/dL Glucose (74-99) mg/dL POC Glucose (mg/dL) 215 H 221 H 190 H (75-99) mg/dL AST (17-59) U/L Total Protein (6.3-8.2) g/dL Albumin (3.5-5.0) g/dL 02/19/17 02/20/17 02/20/17 Range/Units 22:05 00:00 01:58 WBC (3.8-10.6) k/uL RBC (4.30-5.90) m/uL Hgb (13.0-17.5) gm/dL Hct (39.0-53.0) % MCHC (31.0-37.0) g/dL RDW (11.5-15.5) % Neutrophils # (1.3-7.7) k/uL BUN (9-20) mg/dL Creatinine (0.66-1.25) mg/dL Glucose (74-99) mg/dL POC Glucose (mg/dL) 308 H 327 H 241 H (75-99) mg/dL AST (17-59) U/L Total Protein (6.3-8.2) g/dL Albumin (3.5-5.0) g/dL 02/20/17 02/20/17 02/20/17 Range/Units 04:04 05:43 05:43 WBC 12.3 H (3.8-10.6) k/uL RBC 3.38 L (4.30-5.90) m/uL Hgb 9.2 L (13.0-17.5) gm/dL Hct 30.0 L (39.0-53.0) % MCHC 30.8 L (31.0-37.0) g/dL RDW 15.9 H (11.5-15.5) % Neutrophils # 10.4 H (1.3-7.7) k/uL BUN 35 H (9-20) mg/dL Creatinine 1.34 H (0.66-1.25) mg/dL Glucose 143 H (74-99) mg/dL POC Glucose (mg/dL) 165 H (75-99) mg/dL AST 14 L (17-59) U/L Total Protein 6.1 L (6.3-8.2) g/dL Albumin 3.2 L (3.5-5.0) g/dL 02/20/17 02/20/17 02/20/17 Range/Units 05:59 07:49 09:58 WBC (3.8-10.6) k/uL RBC (4.30-5.90) m/uL Hgb (13.0-17.5) gm/dL Hct (39.0-53.0) % MCHC (31.0-37.0) g/dL RDW (11.5-15.5) % Neutrophils # (1.3-7.7) k/uL BUN (9-20) mg/dL Creatinine (0.66-1.25) mg/dL Glucose (74-99) mg/dL POC Glucose (mg/dL) 145 H 185 H 189 H (75-99) mg/dL AST (17-59) U/L Total Protein (6.3-8.2) g/dL Albumin (3.5-5.0) g/dL 02/20/17 02/20/17 Range/Units 11:49 13:58 WBC (3.8-10.6) k/uL RBC (4.30-5.90) m/uL Hgb (13.0-17.5) gm/dL Hct (39.0-53.0) % MCHC (31.0-37.0) g/dL RDW (11.5-15.5) % Neutrophils # (1.3-7.7) k/uL BUN (9-20) mg/dL Creatinine (0.66-1.25) mg/dL Glucose (74-99) mg/dL POC Glucose (mg/dL) 176 H 186 H (75-99) mg/dL AST (17-59) U/L Total Protein (6.3-8.2) g/dL Albumin (3.5-5.0) g/dL Microbiology - Last 24 Hours (Table) 02/18/17 08:30 Gram Stain - Final Sputum Sputum Culture - Final Lauren albicans 02/16/17 01:20 Stool Culture - Final Stool Yeast species 02/15/17 15:22 Blood Culture - Preliminary Blood No Growth after 96 hours 02/15/17 13:07 Blood Culture - Preliminary Blood No Growth after 96 hours Assessment and Plan Plan: Assessment and plan #1 sepsis #2 paroxysmal atrial fibrillation #3 status post mitral valve replacement #4 history of CABG #5 ischemic cardiomyopathy #6 status post AICD #7 CVA #8 hypertension #9 hyperlipidemia #10 diabetes From cardiology's perspective, we will continue anticoagulation with requests. We'll follow-up with the patient as an outpatient. DATA ANALYTICS ANALYST note has been reviewed, I agree with a documented findings and plan of care. Patient was seen and examined.
[2017-02-20 15:34] VITALS: BP 168/88; TEMP 97.6
[2017-02-20 16:26] VITALS: PULSE 80
[2017-02-20 16:52] LABS: Glucose,Whole Blood 317 mg/dL (75-99)
[2017-02-20] MEDS ORDERED: INSULIN DETEMIR 100 UNIT/ML 10 ML VIAL SQ ONE (17:15)
[2017-02-21] MEDS ORDERED: INSULIN DETEMIR 100 UNIT/ML 10 ML VIAL SQ SCH (09:00)
[2017-02-21] MEDS ORDERED: predniSONE 20 MG TAB PO SCH (09:00)
== END 2017-02-20 18:52 | disposition home health service (06) | DRG 871 ==
LOC: EC 22:14 → 6SEL 02-14 01:13 → 6ICU 02-16 01:17 → 6SEL 02-18 20:16
PROVIDERS: ADMIT Family Medicine; ATTEND Family Medicine
DX: A41.9 Sepsis, unspecified organism (principal); J69.0 Pneumonitis due to inhalation of food and vomit; E87.2 Acidosis; I50.22 Chronic systolic (congestive) heart failure; I69.354 Hemiplegia and hemiparesis following cerebral infarction affecting left non-dominant side; J98.11 Atelectasis; I11.0 Hypertensive heart disease with heart failure; E11.65 Type 2 diabetes mellitus with hyperglycemia; E86.0 Dehydration; I48.0 Paroxysmal atrial fibrillation; K76.0 Fatty (change of) liver, not elsewhere classified; E78.5 Hyperlipidemia, unspecified; I25.2 Old myocardial infarction; I25.5 Ischemic cardiomyopathy; I25.10 Atherosclerotic heart disease of native coronary artery without angina pectoris; M19.90 Unspecified osteoarthritis, unspecified site; R74.8 Abnormal levels of other serum enzymes; I69.998 Other sequelae following unspecified cerebrovascular disease; H53.9 Unspecified visual disturbance; T38.0X5A Adverse effect of glucocorticoids and synthetic analogues, initial encounter; Z79.84 Long term (current) use of oral hypoglycemic drugs; Z79.899 Other long term (current) drug therapy; Z79.82 Long term (current) use of aspirin; Z88.8 Allergy status to other drugs, medicaments and biological substances; Z95.810 Presence of automatic (implantable) cardiac defibrillator; Z95.2 Presence of prosthetic heart valve; Z95.1 Presence of aortocoronary bypass graft
CPT/HCPCS: 36415; 71010; 71250; 74177; 78226; 80048; 80053; 80202; 81001; 82533; 82550; 82553; 83036; 83605; 83735; 83880; 84100; 84132; 84443; 84484; 85025; 85610; 85730; 87040; 87045; 87046; 87070; 87077; 87086; 87186; 87205; 87324; 93005; 93306; 93312; 93320; 93325; 94640; 96361; 96365; 96368; 96375; 96376; 99285

== ENCOUNTER → 2019-01-01 | Outpatient (CLI) | payer MEDICARE, BC ==
[2019-01-01 19:53] LABS: Calcium 10.1 mg/dL (8.7-10.3); Potassium 4.5 mmol/L (3.5-5.5)
== END | disposition home or self-care (01) ==
LOC: LABWHC1 11:20
PROVIDERS: ATTEND Nurse Practitioner Adult Health
DX: I25.5 Ischemic cardiomyopathy (principal)
CPT/HCPCS: 36415; 80048